=== PATIENT | male | born 1980 | race African-American/Black ===

== ENCOUNTER 2019-05-07 15:16 | Inpatient (IN) ==
[2019-05-07] MEDS ORDERED: NS 1000 ML 0 ML ONE (15:18)
[2019-05-07 15:40] LABS: BASOPHILS # (AUTO) 0.1 X10^3/uL (0.0-0.1); BASOPHILS % (AUTO) 0.8 % (0.2-1.0); EOSINOPHILS # (AUTO) 0.1 x10^3/uL (0.0-0.2); EOSINOPHILS % (AUTO) 1.5 % (0.9-2.9); HEMATOCRIT 39.2 % (42.0-54.0); HEMOGLOBIN 12.5 g/dL (13.5-18.0); LYMPHOCYTES # (AUTO) 1.6 X10^3/uL (1.3-2.9); LYMPHOCYTES % (AUTO) 19.4 % (21.0-51.0); MEAN CORPUSCULAR HEMOGLOBIN 23.8 pg (27.0-34.0); MEAN CORPUSCULAR HGB CONC 31.8 g/dL (33.0-35.0); MEAN CORPUSCULAR VOLUME 74.9 fL (80.0-100.0); MONOCYTES % (AUTO) 11.8 % (0.0-13.0); NEUTROPHILS # (AUTO) 5.6 x10^3/uL (2.2-4.8); NEUTROPHILS % (AUTO) 66.5 % (42.0-75.0); PLATELET COUNT 291 X10^3/uL (150.0-450.0); RED BLOOD COUNT 5.24 X10^6/uL (4.7-6.0); RED CELL DISTRIBUTION WIDTH 15.9 % (11.6-16.5); WHITE BLOOD COUNT 8.4 X10^3/uL (3.6-10.0)
--- NOTE | 2019-05-07 15:41 | DR.CP ---
HPI Time Seen Time Seen by Provider: 05/07/19 15:29 PCP Primary Care Physician: DR VALLEJO HPI Comment HPI Comment: PATIENT IS 38YR OLD MALE IN ED WITH CHEST PAIN LEFT CHEST 6/10 SQUEEZING PAIN RADIATING TO BACK ASSOCIATED WITH SOB. PATIENT HAVE HISTORY OF SOB. PAIN IS INTERMITTENT AND STARTED LAST NIGHT. PATIENTS SOB IS GETTING WORSE. NO PREVIOUS EPISODE REPORTED. Complaint Chief Complaint Doctor Comments: INTERMITTENT CHEST PAIN TIMES ONE DAY. Chief Complaint:: PT C/O LEFT SIDED CHEST SQUEEZING PAIN RATED 6/10 ASSOCIATED WITH SOB THAT STARTED LAST NIGHT AND HAS CONTINUED INTERMITTENTLY. Reviewed Nurses Notes Review: Yes Source History Provided: Patient Mode of Arrival Mode of Arrival: Ambulatory Timing Onset of Chief Complaint: 05/07/19 Came on: Suddenly Pain: Present Now Duration Duration: Intermittent Duration: Days Location Location of Chest Pain: Left and Chest Chest Pain Radiation Location: Back Context Onset: With light exertion Cardiac Risk Factors: Smoker, HTN and Diabetes PE Risk Factors: None History of: None Prehospital Care: None Quality Quality: Squeezing Severity Severity: Moderate Modifying Factors Worsens: Exertion Impoves: Rest Associated Signs and Symptoms Associated Signs and Symptoms: Shortness of Breath PMH PMH Past Medical History: Yes Past Medical History Comment: CHRONIC FOOT PAIN Past Surgical History: No Family History History of Family Medical Conditions: Yes Family Medical History: Hypertension Social History Does patient currently use any type of tobacco product: Yes Have you used tobacco products in the last 12 months: Yes Type of Tobacco Use: Cigarettes Does any household member use tobacco: No Alcohol Use: Occasionally Do you use any recreational Drugs:: Yes (MARIJUANA) Lives With: Family Lives Where: Home infectious screening In the last 2 months have you had wt loss of >10#?: NO Have you had fever, night sweats or hemotysis?: No Have you traveled outside the country in the last 6 months?: No Isolation: Standard ROS Review of Systems Constitutional: See HPI, Weakness and Fatigue; negative Fever Eyes: See HPI; negative Eye Pain, Blurred Vision and Discharge ENTM: No Symptoms Reported and See HPI; negative Ear Pain, Nose Discharge, Nose Congestion and Throat Pain Respiratoy: See HPI and Short of Breath; negative Productive Cough and Wheezing Cardiovascular: See HPI and Chest Pain; negative Edema, Palpitations and Syncope Gastrointestinal/Abdominal: See HPI and Nausea; negative Abdominal Pain, Constipation, Diarrhea and Vomiting Genitourinary: See HPI; negative No Symptoms Reported, Dysuria, Frequency and Hematuria Neurological: See HPI and Weakness; negative Headache and Dizziness Musculoskeletal: See HPI and Muscle Pain; negative Back Pain and Neck Integumentary: No Symptoms Reported and See HPI; negative Change in Color, Rash, Bruises and Juandice Hematologic/Lymphatic: No Symptoms Reported and See HPI; negative Easy Bleeding, Easy Bruising, Swollen Glands and Lymphadenopathy Endocrine: No Symptoms Reported and See HPI; negative Increased Thirst, Increased Urine and Decreased Appetite Psychiatric: No Symptoms Reported and See HPI All Other Systems: Reviewed and Negative PE Vitals Vitals: Temperature 97.4 F Pulse Rate 80 Respiratory Rate 20 Blood Pressure 118/68 O2 Sat by Pulse Oximetry 97 General Limitations: No Limitations General Appearance: Alert and In No Apparent Distress Head Head Exam: Normal Inspection, Atraumatic and Normocephalic Eyes Eye exam: Normal Appearance, PERRL and EOMI; negative Scleral Icterus and Conjunctival Injection ENT ENT Exam: Normal Exam, Normal Oropharynx, Normal External Ear Exam and TM's Normal Bilaterally Chest Chest Inspection: Normal Inspection and Symmetric Chest Wall Rise; negative T enderness Respiratory Respiratory Exam: Normal Lung Sounds Bilat; negative Accessory Muscle Use, Chest Wall Tenderness and Respiratory Distress Respiratory Exam: Bilateral: Clear to Auscultation Cardiovascular Cardiovascular Exam: Regular Rate, Normal Rhythm and Normal Heart Sounds; negative Systolic Murmur, Diastolic Murmur, Rubs and Gallop Pulse: Normal Edema: Normal Abdominal Exam Abdominal Exam: Normal Inspection, Normal Bowel Sounds and Soft; negative Tenderness Extremities Extremities Exam: Normal Inspection and Normal Capillary Refill; negative Tenderness, Edema and Calf Tenderness Back Back Exam: Normal Inspection; negative Tenderness, (R) CVA Tenderness, (L) CVA Tenderness, Paraspinal Tenderness and Vertebral Tenderness Neurologic Neurological Exam: Alert, Oriented X3 and CN II-XII Intact; negative Motor Sensory Deficit Psychiatric Psychiatric Exam: Normal Affect and Normal Mood Skin Skin Exam: Warm, Dry, Intact and Normal Color MDM Differential Diagnosis Differential Diagnosis: Angina, Chest Wall Pain, CHF, Costochondritis, Gastritis, Myocardial Infarction, Pericarditis, Pneumonia, Pneumothorax and Pulmonary Embolus COURSE Treatment Treatment: SEE ORDERS. Consultation Consultation Comments: SURGERY CONSULT TO DR. MERAZ. DR MORALES [employer] DR [facility] WILL ADMIT PATIENT. Education/Counseling Education/Counseling: Patient Educated On: Diagnosis and Needs for Follow Up ROR Labs Reviewed Laboratory Results Reviewed?: Yes Result Diagrams: 05/12/19 04:36 05/12/19 04:36 Laboratory: WBC 8.5 X10^3/uL (3.6-10.0) 05/12/19 04:36 RBC 5.16 X10^6/uL (4.7-6.0) 05/12/19 04:36 Hgb 12.2 g/dL (13.5-18.0) L 05/12/19 04:36 Hct 38.7 % (42.0-54.0) L 05/12/19 04:36 MCV 74.9 fL (80.0-100.0) L 05/12/19 04:36 MCH 23.7 pg (27.0-34.0) L 05/12/19 04:36 MCHC 31.6 g/dL (33.0-35.0) L 05/12/19 04:36 RDW 15.0 % (11.6-16.5) 05/12/19 04:36 Plt Count 363 X10^3/uL (150.0-450.0) 05/12/19 04:36 Plt Count Comment Adequate (ADEQUATE) 05/12/19 04:36 MPV 7.7 fL (7.4-11.0) 05/12/19 04:36 Neut % (Auto) 65.1 % (42.0-75.0) 05/12/19 04:36 Lymph % (Auto) 20.5 % (21.0-51.0) L 05/12/19 04:36 [place] % (Auto) 10.7 % (0.0-13.0) 05/12/19 04:36 Eos % (Auto) 2.7 % (0.9-2.9) 05/12/19 04:36 Baso % (Auto) 1.0 % (0.2-1.0) 05/12/19 04:36 Neut # (Auto) 5.5 x10^3/uL (2.2-4.8) H 05/12/19 04:36 Lymph # (Auto) 1.7 X10^3/uL (1.3-2.9) 05/12/19 04:36 [place] # (Auto) 0.9 x10^3/uL (0.3-0.8) H 05/12/19 04:36 Eos # (Auto) 0.2 x10^3/uL (0.0-0.2) 05/12/19 04:36 Baso # (Auto) 0.1 X10^3/uL (0.0-0.1) 05/12/19 04:36 Absolute Nucleated RBC 0.0 /100WBC 05/12/19 04:36 Plt Morphology Comment Normal (NORMAL) 05/12/19 04:36 RBC Morphology Abnormal (NORMAL) 05/12/19 04:36 Hypochromasia 1+ A 05/12/19 04:36 Target Cells Present 05/12/19 04:36 D-Dimer 169 ng/mL (0-400) 05/07/19 15:55 Sodium 142 mmol/L (136-145) 05/12/19 04:36 Corrected Sodium TNP 05/12/19 04:36 Potassium 3.8 mmol/L (3.5-5.1) 05/12/19 04:36 Chloride 106 mmol/L (98-107) 05/12/19 04:36 Carbon Dioxide 28.1 mmol/L (21-32) 05/12/19 04:36 BUN 16 mg/dL (7-18) 05/12/19 04:36 Creatinine 0.99 mg/dL (0.70-1.30) 05/12/19 04:36 Est GFR (MDRD) Af Amer > 60 (>60) 05/12/19 04:36 Est GFR (MDRD) Non-Af > 60 (>60) 05/12/19 04:36 Glucose 83 mg/dL (65-99) 05/12/19 04:36 Calcium 8.8 mg/dL (8.5-10.1) 05/12/19 04:36 Corrected Calcium 9.6 mg/dL (8.5-10.1) 05/12/19 04:36 Magnesium 1.8 mg/dL (1.7-2.9) 05/08/19 04:12 Total Bilirubin 0.30 mg/dL (0.2-1.0) 05/12/19 04:36 AST 15 Units/L (15-37) 05/12/19 04:36 ALT 13 Units/L (12-78) 05/12/19 04:36 Alkaline Phosphatase 64 Units/L (46-116) 05/12/19 04:36 Creatine Kinase 289 Units/L (39-308) 05/07/19 15:55 CK-MB (CK-2) 1.4 ng/mL (0-4.0) 05/07/19 15:55 CK/CKMB % Calc 0.5 % (<4) 05/07/19 15:55 Troponin I < 0.02 ng/mL (0-1.5) 05/07/19 15:55 Total Protein 6.4 g/dL (6.4-8.2) 05/12/19 04:36 Albumin 3.0 g/dL (3.4-5.0) L 05/12/19 04:36 Globulin 3.4 g/dL (2.5-4.5) 05/12/19 04:36 Albumin/Globulin Ratio 0.9 Ratio (1.1-2.1) L 05/12/19 04:36 Specimen Type Clean catch urine 05/07/19 18:03 Urine Color Yellow (YELLOW) 05/07/19 18:03 Urine Appearance Clear (CLEAR) 05/07/19 18:03 Urine pH 6.0 (5.0 - 8.0) 05/07/19 18:03 Ur Specific [place] 1.025 (1.000-1.030) 05/07/19 18:03 Urine Protein 1+ (NEGATIVE) 05/07/19 18:03 Urine Glucose (UA) Negative (NEGATIVE) 05/07/19 18:03 Urine Ketones Negative (NEGATIVE) 05/07/19 18:03 Urine Occult Blood 3+ (NEGATIVE) 05/07/19 18:03 Urine Nitrite Negative (NEGATIVE) 05/07/19 18:03 Urine Bilirubin Negative (NEGATIVE) 05/07/19 18:03 Urine Urobilinogen Normal (NORMAL) 05/07/19 18:03 Ur Leukocyte Esterase Negative (NEGATIVE) 05/07/19 18:03 Urine RBC 5-10 /HPF (NONE SEEN) 05/07/19 18:03 Urine WBC 0-2 /HPF (NONE SEEN) 05/07/19 18:03 Ur Squamous Epith Cells Rare /HPF (NEGATIVE) 05/07/19 18:03 Urine Bacteria Negative /HPF (NEGATIVE) 05/07/19 18:03 Urine Mucus Numerous /HPF (NEGATIVE) 05/07/19 18:03 Ur Culture Indicated? No/not indicated 05/07/19 18:03 Urine Opiates Screen Negative (NEG=<300) 05/07/19 18:03 Urine Methadone Screen Negative (NEG=<300) 05/07/19 18:03 Ur Barbiturates Screen Negative (NEG=<200) 05/07/19 18:03 Ur Phencyclidine Scrn Negative (NEG=<25) 05/07/19 18:03 Ur Amphetamines Screen Negative (NEG=<1000) 05/07/19 18:03 U Benzodiazepines Scrn Negative (NEG=<200) 05/07/19 18:03 Urine Cocaine Screen Positive (NEG=<300) 05/07/19 18:03 U Marijuana (THC) Screen Positive (NEG=<50) A 05/07/19 18:03 XRAY XRAY Interpreted by: Radiologist XRAY Findings: REPORT NOTED AND DISCUSS WITH PATIENT. Opioid Opioid Risk Tool Age (Rolo box if 16-45): Yes Total: 1 Total Score Risk Category: Low Risk Copyright: Deandre BAUER predicting aberrant behaviors Diagnosis Discharge Problem: Tension pneumothorax, spontaneous Chest pain Qualifiers: Chest pain type: intercostal pain Qualified Code(s): R07.82 - Intercostal pain Instructions Instructions: Steps to Quit Smoking, [id number] Coping with Quitting Smoking Health Risks of Smoking Cannabis Use Disorder Substance Use Disorder Pneumothorax Chest Tube Insertion, Adult, Care After Forms: Excuse From Work or School Patient Portal
[2019-05-07] MEDS ORDERED: TORADOL 30 MG VIAL IVP ONE (15:54)
[2019-05-07] MEDS ORDERED: PEPCID 20 MG IV PREMIX* 20 MG/50 ML BAG IV ONE (15:54)
[2019-05-07 15:55] LABS: HYPOCHROMASIA 1+; PLATELET MORPHOLOGY COMMENT NORMAL (NORMAL)
[2019-05-07] MEDS ORDERED: TORADOL 30 MG VIAL ONE (16:13)
[2019-05-07] MEDS ORDERED: PEPCID 20 MG IV PREMIX* 20 MG/50 ML BAG ONE (16:13)
[2019-05-07 16:37] LABS: ALANINE AMINOTRANSFERASE 16 Units/L (12-78); ALBUMIN 3.6 g/dL (3.4-5.0); ALKALINE PHOSPHATASE 71 Units/L (46-116); ASPARTATE AMINO TRANSFERASE 17 Units/L (15-37); BLOOD UREA NITROGEN 17 mg/dL (7-18); CALCIUM 8.8 mg/dL (8.5-10.1); CARBON DIOXIDE 25.4 mmol/L (21-32); CHLORIDE 109 mmol/L (98-107); CKMB % 0.5 % (<4); COR NA(FOR HYPERGLY) 146 mmol/L (136-145); CREATINE KINASE 289 Units/L (39-308); CREATINE KINASE MB 1.4 ng/mL (0-4.0); CREATININE 1.19 mg/dL (0.70-1.30); SODIUM 146 mmol/L (136-145); TOTAL PROTEIN 6.9 g/dL (6.4-8.2); TROPONIN I < 0.02 ng/mL (0-1.5); eGFR NON BLACK RACES > 60 (>60)
[2019-05-07] MEDS ORDERED: XYLOCAINE 2 % (PLAIN) ONE (17:47)
[2019-05-07] MEDS ORDERED: STERILE WATER IRRIGATION ONE (17:49)
[2019-05-07 18:10] LABS: BILIRUBIN,URINE NEGATIVE (NEGATIVE); BLOOD/HEMOGLOBIN,URINE 3+ (NEGATIVE); GLUCOSE, URINE NEGATIVE (NEGATIVE); KETONES,URINE NEGATIVE (NEGATIVE); LEUKOCYTE ESTERASE ,URINE NEGATIVE (NEGATIVE); NITRITES,URINE NEGATIVE (NEGATIVE); PROTEIN,URINE 1+ (NEGATIVE); UROBILINOGEN,URINE NORMAL (NORMAL)
[2019-05-07 18:21] LABS: APPEARANCE,URINE CLEAR (CLEAR); COLOR,URINE YELLOW (YELLOW)
[2019-05-07 18:22] LABS: BACTERIA,URINE NEGATIVE /HPF (NEGATIVE); MUCUS,URINE NUMEROUS /HPF (NEGATIVE); SQUAMOUS EPITHELIAL CELL,UR RARE /HPF (NEGATIVE)
[2019-05-07] MEDS ORDERED: DILAUDID INJ ONE (18:40)
[2019-05-07] MEDS ORDERED: DILAUDID INJ IVP ONE (18:41)
[2019-05-07] MEDS ORDERED: ZOFRAN INJ 4 MG VIAL IVP SCH (21:00)
[2019-05-07] MEDS: NS 1000 ML 1,000 ML IV SCH (21:22)
[2019-05-07 21:57] VITALS: BMI 19.5
--- NOTE | 2019-05-08 01:39 | RAD ---
Chest, one view Indication: Chest tube placement Comparison: Radiograph from earlier today Findings: Left thoracostomy tube is well positioned, terminating along the left lateral lung apex. The left sided pneumothorax is significantly improved. There is now a trace persistent left apical pneumothorax. Apart from mild left basilar atelectasis, the remainder of the lungs are clear. Heart is normal in size. Impression: Satisfactory left thoracostomy tube placement with significantly improved left pneumothorax. Reported By:
[2019-05-08] MEDS: MORPHINE SULFATE INJ 4 MG IVP PRN ×3 (03:11→20:35)
--- NOTE | 2019-05-08 05:21 | OR.GENERIC ---
Post-Op Note Generic - Post-Op Note Operative Report: chest tube was placed Lt pleural space with good position and expansion of the lung ..still small pneumothorax in the appex . will repeat the xray in the morning and keep chest tube to LCS ,
[2019-05-08 05:45] LABS: ALANINE AMINOTRANSFERASE 14 Units/L (12-78); ALBUMIN 2.9 g/dL (3.4-5.0); ALKALINE PHOSPHATASE 63 Units/L (46-116); ASPARTATE AMINO TRANSFERASE 15 Units/L (15-37); BLOOD UREA NITROGEN 15 mg/dL (7-18); CALCIUM 8.4 mg/dL (8.5-10.1); CARBON DIOXIDE 25.8 mmol/L (21-32); CHLORIDE 108 mmol/L (98-107); COR CA(FOR HYPOALB) 9.3 mg/dL (8.5-10.1); CREATININE 1.01 mg/dL (0.70-1.30); MAGNESIUM 1.8 mg/dL (1.7-2.9); SODIUM 143 mmol/L (136-145); TOTAL PROTEIN 6.1 g/dL (6.4-8.2); eGFR NON BLACK RACES > 60 (>60)
[2019-05-08 05:53] LABS: BASOPHILS # (AUTO) 0.1 X10^3/uL (0.0-0.1); BASOPHILS % (AUTO) 0.6 % (0.2-1.0); EOSINOPHILS # (AUTO) 0.1 x10^3/uL (0.0-0.2); EOSINOPHILS % (AUTO) 1.5 % (0.9-2.9); HEMOGLOBIN 11.5 g/dL (13.5-18.0); LYMPHOCYTES # (AUTO) 1.8 X10^3/uL (1.3-2.9); LYMPHOCYTES % (AUTO) 18.9 % (21.0-51.0); MEAN CORPUSCULAR HEMOGLOBIN 23.8 pg (27.0-34.0); MEAN CORPUSCULAR HGB CONC 32.1 g/dL (33.0-35.0); MEAN CORPUSCULAR VOLUME 74.4 fL (80.0-100.0); MEAN PLATELET VOLUME 7.5 fL (7.4-11.0); MONOCYTES % (AUTO) 10.7 % (0.0-13.0); NEUTROPHILS # (AUTO) 6.6 x10^3/uL (2.2-4.8); NEUTROPHILS % (AUTO) 68.3 % (42.0-75.0); PLATELET COUNT 298 X10^3/uL (150.0-450.0); RED BLOOD COUNT 4.84 X10^6/uL (4.7-6.0); RED CELL DISTRIBUTION WIDTH 15.6 % (11.6-16.5); WHITE BLOOD COUNT 9.7 X10^3/uL (3.6-10.0)
[2019-05-08 06:38] LABS: HYPOCHROMASIA SLIGHT; PLATELET MORPHOLOGY COMMENT NORMAL (NORMAL)
--- NOTE | 2019-05-08 06:55 | RAD ---
HISTORY: Follow-up pneumothorax Study: Chest AP portable Comparison: 05/07/2019 Findings: The heart is upper limits normal in size. No congestive heart failure is noted. The lungs are mildly hypo inflated. The right lung is clear. There is a left chest tube in place. No definite residual left pneumothorax is identified. Bullous changes present in the left lung apex. The bony thorax is unremarkable. IMPRESSION: No significant residual or recurrent left pneumothorax Bullous change left lung apex No acute infiltrates Reported By:
[2019-05-08] MEDS: NS 1000 ML 1,000 ML IV SCH (09:56)
[2019-05-08] MEDS ORDERED: TORADOL 30 MG VIAL IVP SCH (10:00)
[2019-05-08] MEDS: LEVAQUIN PREMIX IV 500 MG 500 MG/100 ML BAG IV SCH (11:18)
--- NOTE | 2019-05-08 13:43 | DR.PROGNOT ---
Hospital Progress Notes - Progress Note for Day of: Progress Note Date: 05/08/19 - Chief Complaint Chief Complaint: c/o Lt chest pain with mild SOB . chest xray shwed good placement of the chest tube , no further pneumothorax . VS are stable . - Past Medical Family Social History Past Med/Fam/Surg Hx: No changes since H&P Allergies: Allergies No Known Drug Allergies Allergy (Verified 05/07/19 20:18) - Review Of Systems ROS: No change since H&P - Vital Signs Vital Signs: Temperature 99.0 F Pulse Rate 67 Respiratory Rate 16 Blood Pressure 126/85 O2 Sat by Pulse Oximetry 95 - Physical Exam Oriented: Normal Eyes: Normal Ear: Normal Nose: Normal Respiratory: Normal Cardiovascular: Normal : Normal GI:Auscultation: Normal GI:Palpation: Normal GI: Tenderness: Normal Musculoskeletal: Normal Psychiatric: Normal Speech Pattern: Clear - Laboratory and Diagnostics Result Diagrams: 05/08/19 04:12 05/08/19 04:12 Labs: Laboratory WBC 9.7 X10^3/uL (3.6-10.0) 05/08/19 04:12 RBC 4.84 X10^6/uL (4.7-6.0) 05/08/19 04:12 Hgb 11.5 g/dL (13.5-18.0) L 05/08/19 04:12 Hct 36.0 % (42.0-54.0) L 05/08/19 04:12 MCV 74.4 fL (80.0-100.0) L 05/08/19 04:12 MCH 23.8 pg (27.0-34.0) L 05/08/19 04:12 MCHC 32.1 g/dL (33.0-35.0) L 05/08/19 04:12 RDW 15.6 % (11.6-16.5) 05/08/19 04:12 Plt Count 298 X10^3/uL (150.0-450.0) 05/08/19 04:12 Plt Count Comment Adequate (ADEQUATE) 05/08/19 04:12 MPV 7.5 fL (7.4-11.0) 05/08/19 04:12 Neut % (Auto) 68.3 % (42.0-75.0) 05/08/19 04:12 Lymph % (Auto) 18.9 % (21.0-51.0) L 05/08/19 04:12 [place] % (Auto) 10.7 % (0.0-13.0) 05/08/19 04:12 Eos % (Auto) 1.5 % (0.9-2.9) 05/08/19 04:12 Baso % (Auto) 0.6 % (0.2-1.0) 05/08/19 04:12 Neut # (Auto) 6.6 x10^3/uL (2.2-4.8) H 05/08/19 04:12 Lymph # (Auto) 1.8 X10^3/uL (1.3-2.9) 05/08/19 04:12 [place] # (Auto) 1.0 x10^3/uL (0.3-0.8) H 05/08/19 04:12 Eos # (Auto) 0.1 x10^3/uL (0.0-0.2) 05/08/19 04:12 Baso # (Auto) 0.1 X10^3/uL (0.0-0.1) 05/08/19 04:12 Absolute Nucleated RBC 0.0 /100WBC 05/08/19 04:12 Plt Morphology Comment Normal (NORMAL) 05/08/19 04:12 RBC Morphology Abnormal (NORMAL) 05/08/19 04:12 Hypochromasia Slight A 05/08/19 04:12 D-Dimer 169 ng/mL (0-400) 05/07/19 15:55 Sodium 143 mmol/L (136-145) 05/08/19 04:12 Corrected Sodium TNP 05/08/19 04:12 Potassium 3.9 mmol/L (3.5-5.1) 05/08/19 04:12 Chloride 108 mmol/L (98-107) H 05/08/19 04:12 Carbon Dioxide 25.8 mmol/L (21-32) 05/08/19 04:12 BUN 15 mg/dL (7-18) 05/08/19 04:12 Creatinine 1.01 mg/dL (0.70-1.30) 05/08/19 04:12 Est GFR (MDRD) Af Amer > 60 (>60) 05/08/19 04:12 Est GFR (MDRD) Non-Af > 60 (>60) 05/08/19 04:12 Glucose 90 mg/dL (65-99) 05/08/19 04:12 Calcium 8.4 mg/dL (8.5-10.1) L 05/08/19 04:12 Corrected Calcium 9.3 mg/dL (8.5-10.1) 05/08/19 04:12 Magnesium 1.8 mg/dL (1.7-2.9) 05/08/19 04:12 Total Bilirubin 0.30 mg/dL (0.2-1.0) 05/08/19 04:12 AST 15 Units/L (15-37) 05/08/19 04:12 ALT 14 Units/L (12-78) 05/08/19 04:12 Alkaline Phosphatase 63 Units/L (46-116) 05/08/19 04:12 Creatine Kinase 289 Units/L (39-308) 05/07/19 15:55 CK-MB (CK-2) 1.4 ng/mL (0-4.0) 05/07/19 15:55 CK/CKMB % Calc 0.5 % (<4) 05/07/19 15:55 Troponin I < 0.02 ng/mL (0-1.5) 05/07/19 15:55 Total Protein 6.1 g/dL (6.4-8.2) L 05/08/19 04:12 Albumin 2.9 g/dL (3.4-5.0) L 05/08/19 04:12 Globulin 3.2 g/dL (2.5-4.5) 05/08/19 04:12 Albumin/Globulin Ratio 0.9 Ratio (1.1-2.1) L 05/08/19 04:12 Specimen Type Clean catch urine 05/07/19 18:03 Urine Color Yellow (YELLOW) 05/07/19 18:03 Urine Appearance Clear (CLEAR) 05/07/19 18:03 Urine pH 6.0 (5.0 - 8.0) 05/07/19 18:03 Ur Specific [place] 1.025 (1.000-1.030) 05/07/19 18:03 Urine Protein 1+ (NEGATIVE) 05/07/19 18:03 Urine Glucose (UA) Negative (NEGATIVE) 05/07/19 18:03 Urine Ketones Negative (NEGATIVE) 05/07/19 18:03 Urine Occult Blood 3+ (NEGATIVE) 05/07/19 18:03 Urine Nitrite Negative (NEGATIVE) 05/07/19 18:03 Urine Bilirubin Negative (NEGATIVE) 05/07/19 18:03 Urine Urobilinogen Normal (NORMAL) 05/07/19 18:03 Ur Leukocyte Esterase Negative (NEGATIVE) 05/07/19 18:03 Urine RBC 5-10 /HPF (NONE SEEN) 05/07/19 18:03 Urine WBC 0-2 /HPF (NONE SEEN) 05/07/19 18:03 Ur Squamous Epith Cells Rare /HPF (NEGATIVE) 05/07/19 18:03 Urine Bacteria Negative /HPF (NEGATIVE) 05/07/19 18:03 Urine Mucus Numerous /HPF (NEGATIVE) 05/07/19 18:03 Ur Culture Indicated? No/not indicated 05/07/19 18:03 Urine Opiates Screen Negative (NEG=<300) 05/07/19 18:03 Urine Methadone Screen Negative (NEG=<300) 05/07/19 18:03 Ur Barbiturates Screen Negative (NEG=<200) 05/07/19 18:03 Ur Phencyclidine Scrn Negative (NEG=<25) 05/07/19 18:03 Ur Amphetamines Screen Negative (NEG=<1000) 05/07/19 18:03 U Benzodiazepines Scrn Negative (NEG=<200) 05/07/19 18:03 Urine Cocaine Screen Positive (NEG=<300) 05/07/19 18:03 U Marijuana (THC) Screen Positive (NEG=<50) A 05/07/19 18:03 - Assessment and Plan 1: spontaneous Lt pneumothorax , s/p placement of chest tube . areas of bollous changes Lt lung appex ( possible future recurrence of pneumo thorax ) . will keep chest tube for few days till no more air leak .
[2019-05-08] MEDS: TORADOL TAB PO PRN (17:06)
--- NOTE | 2019-05-08 19:17 | DR.H&P ---
H&P - History & Physical for Day of: H&P Date: 05/07/19 - Chief Complaint Chief Complaint: SHORT OF BREATH, CHEST PAIN - History of Present Illness History of Present Illness: IS A 38 YEAR OLD PATIENT OF . HE PRESENTED TO THE ER WITH COMPLAINTS OF LEFT SIDED CHEST PAIN AND SHORTNESS OF BREATH. HE REPORTS THAT SYMPTOMS STARTED LAST NIGHT AND HAS PROGRESSIVELY GOTTEN WORSE. ON EXAMINATION, HE IS NOTED WITH DIMINISHED LUNG SOUNDS TO THE LEFT SIDE LUNG. ON ARRIVAL, VITALS WERE 98.2-101-22-99%-129/83. LABS WERE OBTAINED. ABNORMAL LAB VALUES INCLUDE THE FOLLOWING: HGB 12.5, HCT 39.2, SODIUM 146, CHLORIDE 109, GLUCOSE 116. URINE DRUG SCREEN WAS POSITIVE FOR COCAINE AND MARIJUANA. A CHEST XRAY WAS OBTAINED AND REVEALED A LEFT SIDED PNEUMOTHORAX. WAS CONSULTED FOR PLACEMENT OF A CHEST TUBE. CHEST TUBE WAS PLACED IN THE ER. REPEAT CHEST XRAY REVEALED: Satisfactory left thoracostomy tube placement with significantly improved left pneumothorax. HE WAS ADMITTED FOR FURTHER EVALUATION AND TREATMENT OF TENSION PNEUMONTHORAX AND CHEST PAIN. HE WAS STARTED ON NORMAL SALINE AT 75ML/HR AND MORPHINE 4MG IV Q4H PRN PAIN. WE WILL FOLLOW UP WITH AM LABS AND CONTINUE TO MONITOR. - Past Surgical History Surgical History: No History - Family History Family Medical History: Hypertension - Social History Does patient currently use any type of tobacco product: Yes Have you used tobacco products in the last 12 months: Yes Type of Tobacco Use: Cigarettes Does any household member use tobacco: Yes Alcohol Use: Occasionally Drug Use: Cocaine - Medications Home Medications: No Known Drug Allergies Allergy (Verified 05/07/19 20:18) - Review of Systems Constitutional: No Symptoms Reported Eyes: No Symptoms Reported ENT: No Symptoms Reported Respiratory: Shortness of Breath, SOB with Excertion Cardiovascular: Chest Pain Gastrointestinal: No Symptoms Reported Genitourinary: No Symptoms Reported Musculoskeletal: No Symptoms Reported Skin: No Symptoms Reported Neurological: No Symptoms Reported - Physical Exam Vital Signs: Temperature 98.9 F Pulse Rate 69 Respiratory Rate 22 Blood Pressure 127/83 O2 Sat by Pulse Oximetry 96 Oriented: Normal Eyes: Normal Ear: Normal Nose: Normal Throat: Normal Respiratory: Diminished Throughout Cardiovascular: Tachycardia. negative: S3, S4, Murmur : Normal Auscultation: Bowel Sounds: Normal Palpation: Normal Tenderness: Normal Skin: Normal Musculoskeletal: Normal Psychiatric: Normal Mood Description: Calm Affect: Normal Speech Pattern: Clear - Assessment/Plan (1) Tension pneumothorax Status: Acute Plan: CHEST TUBE, SUPPLEMENTAL OXYGEN, PAIN CONTROL, CONTINUE TO MONITOR (2) Chest pain, rule out acute myocardial infarction Status: Acute Plan: SERIAL CARDIAC ENZYMES AND EKGS - Allergies Allergies/Adverse Reactions: Allergies Allergy/AdvReac Type Severity Reaction Status Date / Time No Known Drug Allergies Allergy Verified 05/07/19 20:18
[2019-05-08] MEDS: ZOFRAN INJ 4 MG VIAL IVP PRN (20:36)
[2019-05-09] MEDS: NS 1000 ML 1,000 ML IV SCH (01:20)
[2019-05-09] MEDS: ZOFRAN INJ 4 MG VIAL IVP PRN (04:31)
[2019-05-09] MEDS: MORPHINE SULFATE INJ 4 MG IVP PRN (04:31)
[2019-05-09 05:44] LABS: BASOPHILS # (AUTO) 0.1 X10^3/uL (0.0-0.1); BASOPHILS % (AUTO) 0.8 % (0.2-1.0); EOSINOPHILS # (AUTO) 0.2 x10^3/uL (0.0-0.2); EOSINOPHILS % (AUTO) 2.3 % (0.9-2.9); HEMATOCRIT 37.2 % (42.0-54.0); HEMOGLOBIN 11.8 g/dL (13.5-18.0); LYMPHOCYTES # (AUTO) 1.5 X10^3/uL (1.3-2.9); LYMPHOCYTES % (AUTO) 20.3 % (21.0-51.0); MEAN CORPUSCULAR HEMOGLOBIN 23.8 pg (27.0-34.0); MEAN CORPUSCULAR HGB CONC 31.7 g/dL (33.0-35.0); MEAN CORPUSCULAR VOLUME 75.2 fL (80.0-100.0); MEAN PLATELET VOLUME 7.7 fL (7.4-11.0); MONOCYTES % (AUTO) 12.9 % (0.0-13.0); NEUTROPHILS # (AUTO) 4.8 x10^3/uL (2.2-4.8); NEUTROPHILS % (AUTO) 63.7 % (42.0-75.0); PLATELET COUNT 286 X10^3/uL (150.0-450.0); RED BLOOD COUNT 4.95 X10^6/uL (4.7-6.0); RED CELL DISTRIBUTION WIDTH 15.5 % (11.6-16.5); WHITE BLOOD COUNT 7.5 X10^3/uL (3.6-10.0)
[2019-05-09 05:48] LABS: ALANINE AMINOTRANSFERASE 14 Units/L (12-78); ALBUMIN 2.9 g/dL (3.4-5.0); ALKALINE PHOSPHATASE 58 Units/L (46-116); ASPARTATE AMINO TRANSFERASE 16 Units/L (15-37); BLOOD UREA NITROGEN 10 mg/dL (7-18); CALCIUM 8.4 mg/dL (8.5-10.1); CARBON DIOXIDE 26.5 mmol/L (21-32); CHLORIDE 106 mmol/L (98-107); COR CA(FOR HYPOALB) 9.3 mg/dL (8.5-10.1); CREATININE 0.93 mg/dL (0.70-1.30); SODIUM 141 mmol/L (136-145); TOTAL PROTEIN 6.1 g/dL (6.4-8.2); eGFR NON BLACK RACES > 60 (>60)
--- NOTE | 2019-05-09 06:16 | RAD ---
Chest, one view Indication: Shortness of breath Comparison: 05/08/2019 Findings: The left thoracostomy tube remains satisfactory in position. No significant residual or recurrent left pneumothorax is identified. Bullous changes within the left lung apex again noted. Apart from mild bibasilar atelectasis, the remainder of the lungs are clear. Heart is stable in size. No significant effusion. Impression: Stable left thoracostomy tube without significant residual or recurrent left pneumothorax. Stable left apical bullous changes. Mild bibasilar atelectasis without acute infiltrates. Reported By:
[2019-05-09 06:48] LABS: HYPOCHROMASIA 1+; PLATELET MORPHOLOGY COMMENT NORMAL (NORMAL)
[2019-05-09] MEDS: LEVAQUIN PREMIX IV 500 MG 500 MG/100 ML BAG IV SCH (08:18)
--- NOTE | 2019-05-09 08:57 | PCM.PROG ---
Progress Note - Progress Note for Day of Date of Exam: 05/08/19 - Subjective Subjective: WAS ADMITTED FOR A TENSION PNEUMOTHORAX AND CHEST PAIN. TODAY, HE IS ALERT AND ORIENTED, LYING IN BED ON MORNING ROUNDS. HE REPORTS LEFT SIDED PAIN, BUT REPORTS THAT SHORTNESS OF BREATH HAS IMPROVED. PAIN IS LIKELY RELATED TO THE CHEST TUBE. ON EXAMINATION, HEART IS REGULAR IN RATE AND RHYTHM. BILATERAL LUNGS ARE NOTED WITH DIMINISHED LUNG SOUNDS THROUGHOUT. ABDOMEN IS ROUND, SOFT, AND NON-TENDER WITH NORMAL BOWEL SOUNDS NOTED IN ALL QUADRANTS. HIS VITALS THIS MORNING ARE: 99.5-59-39-92%-134/87. LABS WERE OBTAINED. ABNORMAL LAB VALUES INCLUDE THE FOLLOWING: HGB 11.5, HCT 36.0, CHLORIDE 108, CALCIUM 8.4, TOTAL PROTEIN 6.1, ALBUMIN 2.9. A CHEST XRAY WAS OBTAINED TODAY AND REVEALED: No significant residual or recurrent left pneumothorax. Bullous change left lung apex. No acute infiltrates. HE IS CURRENTLY RECEIVING NORMAL SALINE AT 75ML/HR AND MORPHINE 4MG IV Q4H PRN PAIN. TODAY, WE WILL START TORADOL 30MG IV Q6H. OTHERWISE, WE WILL FOLLOW UP WITH AM LABS AND CONTINUE TO MONITOR. - Past Medical Family Social History Past Med/Fam/Surg Hx: No changes since H&P Allergies: Allergies No Known Drug Allergies Allergy (Verified 05/07/19 20:18) - Review of Systems ROS: No change since H&P - Vital Signs and I&O's Vital Signs: Temperature 98.6 F Pulse Rate 64 Respiratory Rate 30 Blood Pressure 136/85 O2 Sat by Pulse Oximetry 99 Intake and Output: Intake & Output 05/06/19 05/07/19 05/08/19 05/09/19 11:59 11:59 11:59 11:59 Intake Total 1865 / 1865 4345 / 4345 Output Total 245 / 245 1645 / 1645 Balance 1620 / 1620 2700 / 2700 - Physical Exam Oriented: Normal Eyes: Normal Ear: Normal Nose: Normal Throat: Normal Respiratory: Normal Cardiovascular: Tachycardia. negative: S3, S4, Murmur : Normal Auscultation: Bowel Sounds: Normal Palpation: Normal Tenderness: Normal Skin: Normal Musculoskeletal: Normal Psychiatric: Normal Mood Description: Calm Affect: Normal Speech Pattern: Clear - Laboratory and Diagnostics Result Diagrams: 05/09/19 04:12 05/09/19 04:12 Labs: Laboratory WBC 7.5 X10^3/uL (3.6-10.0) 05/09/19 04:12 RBC 4.95 X10^6/uL (4.7-6.0) 05/09/19 04:12 Hgb 11.8 g/dL (13.5-18.0) L 05/09/19 04:12 Hct 37.2 % (42.0-54.0) L 05/09/19 04:12 MCV 75.2 fL (80.0-100.0) L 05/09/19 04:12 MCH 23.8 pg (27.0-34.0) L 05/09/19 04:12 MCHC 31.7 g/dL (33.0-35.0) L 05/09/19 04:12 RDW 15.5 % (11.6-16.5) 05/09/19 04:12 Plt Count 286 X10^3/uL (150.0-450.0) 05/09/19 04:12 Plt Count Comment Adequate (ADEQUATE) 05/09/19 04:12 MPV 7.7 fL (7.4-11.0) 05/09/19 04:12 Neut % (Auto) 63.7 % (42.0-75.0) 05/09/19 04:12 Lymph % (Auto) 20.3 % (21.0-51.0) L 05/09/19 04:12 [place] % (Auto) 12.9 % (0.0-13.0) 05/09/19 04:12 Eos % (Auto) 2.3 % (0.9-2.9) 05/09/19 04:12 Baso % (Auto) 0.8 % (0.2-1.0) 05/09/19 04:12 Neut # (Auto) 4.8 x10^3/uL (2.2-4.8) 05/09/19 04:12 Lymph # (Auto) 1.5 X10^3/uL (1.3-2.9) 05/09/19 04:12 [place] # (Auto) 1.0 x10^3/uL (0.3-0.8) H 05/09/19 04:12 Eos # (Auto) 0.2 x10^3/uL (0.0-0.2) 05/09/19 04:12 Baso # (Auto) 0.1 X10^3/uL (0.0-0.1) 05/09/19 04:12 Absolute Nucleated RBC 0.0 /100WBC 05/09/19 04:12 Plt Morphology Comment Normal (NORMAL) 05/09/19 04:12 RBC Morphology Abnormal (NORMAL) 05/09/19 04:12 Hypochromasia 1+ A 05/09/19 04:12 D-Dimer 169 ng/mL (0-400) 05/07/19 15:55 Sodium 141 mmol/L (136-145) 05/09/19 04:12 Corrected Sodium TNP 05/09/19 04:12 Potassium 3.8 mmol/L (3.5-5.1) 05/09/19 04:12 Chloride 106 mmol/L (98-107) 05/09/19 04:12 Carbon Dioxide 26.5 mmol/L (21-32) 05/09/19 04:12 BUN 10 mg/dL (7-18) 05/09/19 04:12 Creatinine 0.93 mg/dL (0.70-1.30) 05/09/19 04:12 Est GFR (MDRD) Af Amer > 60 (>60) 05/09/19 04:12 Est GFR (MDRD) Non-Af > 60 (>60) 05/09/19 04:12 Glucose 89 mg/dL (65-99) 05/09/19 04:12 Calcium 8.4 mg/dL (8.5-10.1) L 05/09/19 04:12 Corrected Calcium 9.3 mg/dL (8.5-10.1) 05/09/19 04:12 Magnesium 1.8 mg/dL (1.7-2.9) 05/08/19 04:12 Total Bilirubin 0.30 mg/dL (0.2-1.0) 05/09/19 04:12 AST 16 Units/L (15-37) 05/09/19 04:12 ALT 14 Units/L (12-78) 05/09/19 04:12 Alkaline Phosphatase 58 Units/L (46-116) 05/09/19 04:12 Creatine Kinase 289 Units/L (39-308) 05/07/19 15:55 CK-MB (CK-2) 1.4 ng/mL (0-4.0) 05/07/19 15:55 CK/CKMB % Calc 0.5 % (<4) 05/07/19 15:55 Troponin I < 0.02 ng/mL (0-1.5) 05/07/19 15:55 Total Protein 6.1 g/dL (6.4-8.2) L 05/09/19 04:12 Albumin 2.9 g/dL (3.4-5.0) L 05/09/19 04:12 Globulin 3.2 g/dL (2.5-4.5) 05/09/19 04:12 Albumin/Globulin Ratio 0.9 Ratio (1.1-2.1) L 05/09/19 04:12 Specimen Type Clean catch urine 05/07/19 18:03 Urine Color Yellow (YELLOW) 05/07/19 18:03 Urine Appearance Clear (CLEAR) 05/07/19 18:03 Urine pH 6.0 (5.0 - 8.0) 05/07/19 18:03 Ur Specific [place] 1.025 (1.000-1.030) 05/07/19 18:03 Urine Protein 1+ (NEGATIVE) 05/07/19 18:03 Urine Glucose (UA) Negative (NEGATIVE) 05/07/19 18:03 Urine Ketones Negative (NEGATIVE) 05/07/19 18:03 Urine Occult Blood 3+ (NEGATIVE) 05/07/19 18:03 Urine Nitrite Negative (NEGATIVE) 05/07/19 18:03 Urine Bilirubin Negative (NEGATIVE) 05/07/19 18:03 Urine Urobilinogen Normal (NORMAL) 05/07/19 18:03 Ur Leukocyte Esterase Negative (NEGATIVE) 05/07/19 18:03 Urine RBC 5-10 /HPF (NONE SEEN) 05/07/19 18:03 Urine WBC 0-2 /HPF (NONE SEEN) 05/07/19 18:03 Ur Squamous Epith Cells Rare /HPF (NEGATIVE) 05/07/19 18:03 Urine Bacteria Negative /HPF (NEGATIVE) 05/07/19 18:03 Urine Mucus Numerous /HPF (NEGATIVE) 05/07/19 18:03 Ur Culture Indicated? No/not indicated 05/07/19 18:03 Urine Opiates Screen Negative (NEG=<300) 05/07/19 18:03 Urine Methadone Screen Negative (NEG=<300) 05/07/19 18:03 Ur Barbiturates Screen Negative (NEG=<200) 05/07/19 18:03 Ur Phencyclidine Scrn Negative (NEG=<25) 05/07/19 18:03 Ur Amphetamines Screen Negative (NEG=<1000) 05/07/19 18:03 U Benzodiazepines Scrn Negative (NEG=<200) 05/07/19 18:03 Urine Cocaine Screen Positive (NEG=<300) 05/07/19 18:03 U Marijuana (THC) Screen Positive (NEG=<50) A 05/07/19 18:03 - Plan (1) Tension pneumothorax Status: Acute Plan: CHEST TUBE, SUPPLEMENTAL OXYGEN, PAIN CONTROL, CONTINUE TO MONITOR (2) Chest pain, rule out acute myocardial infarction Status: Acute Plan: CONTINUE TO MONITOR
[2019-05-09] MEDS: TORADOL TAB PO PRN (11:00)
--- NOTE | 2019-05-09 14:53 | PCM.PROG ---
Progress Note - Progress Note for Day of Date of Exam: 05/09/19 - Subjective Subjective: WAS ADMITTED FOR A TENSION PNEUMOTHORAX AND CHEST PAIN. TODAY, HE IS ALERT AND ORIENTED, LYING IN BED ON MORNING ROUNDS. HE REPORTS LEFT SIDED RYAN. HE STATES THAT SHORTNESS OF BREATH HAS IMPROVED. PAIN IS LIKELY RELATED TO THE CHEST TUBE. ON EXAMINATION, HEART IS REGULAR IN RATE AND RHYTHM. BILATERAL LUNGS ARE NOTED WITH DIMINISHED LUNG SOUNDS THROUGHOUT. ABDOMEN IS ROUND, SOFT, AND NON-TENDER WITH NORMAL BOWEL SOUNDS NOTED IN ALL QUADRANTS. HIS VITALS THIS MORNING ARE: 98.7-63-17-100%-124/83. LABS WERE OBTAINED. ABNORMAL LAB VALUES INCLUDE THE FOLLOWING: HGB 11.8, HCT 37.2, CALCIUM 8.4, TOTAL PROTEIN 6.1, ALBUMIN 2.9. A CHEST XRAY WAS OBTAINED TODAY AND REVEALED: Stable left thoracostomy tube without significant residual or recurrent left pneumothorax. Stable left apical bullous changes. Mild bibasilar atelectasis without acute infiltrates. HE IS CURRENTLY RECEIVING NORMAL SALINE AT 75ML/HR AND LEVAQUIN 500MG IV DAILY. TODAY, WE WILL DISCONTINUE THE MORPHINE AND CONTINUE WITH THE TORADOL. OTHERWISE, WE WILL FOLLOW UP WITH AM LABS AND CONTINUE TO MONITOR. - Past Medical Family Social History Past Med/Fam/Surg Hx: No changes since H&P Allergies: Allergies No Known Drug Allergies Allergy (Verified 05/07/19 20:18) - Review of Systems ROS: No change since H&P - Vital Signs and I&O's Vital Signs: Temperature 98.7 F Pulse Rate 64 Respiratory Rate 15 Blood Pressure 118/81 O2 Sat by Pulse Oximetry 100 Intake and Output: Intake & Output 05/07/19 05/08/19 05/09/19 05/10/19 11:59 11:59 11:59 11:59 Intake Total 1865 / 1865 4345 / 4345 Output Total 245 / 245 1645 / 1645 Balance 1620 / 1620 2700 / 2700 - Physical Exam Oriented: Normal Eyes: Normal Ear: Normal Nose: Normal Throat: Normal Respiratory: Normal Cardiovascular: Normal. negative: S3, S4, Murmur : Normal Auscultation: Bowel Sounds: Normal Palpation: Normal Tenderness: Normal Skin: Normal Musculoskeletal: Normal Psychiatric: Normal Mood Description: Calm Affect: Normal Speech Pattern: Clear - Laboratory and Diagnostics Result Diagrams: 05/09/19 04:12 05/09/19 04:12 Labs: Laboratory WBC 7.5 X10^3/uL (3.6-10.0) 05/09/19 04:12 RBC 4.95 X10^6/uL (4.7-6.0) 05/09/19 04:12 Hgb 11.8 g/dL (13.5-18.0) L 05/09/19 04:12 Hct 37.2 % (42.0-54.0) L 05/09/19 04:12 MCV 75.2 fL (80.0-100.0) L 05/09/19 04:12 MCH 23.8 pg (27.0-34.0) L 05/09/19 04:12 MCHC 31.7 g/dL (33.0-35.0) L 05/09/19 04:12 RDW 15.5 % (11.6-16.5) 05/09/19 04:12 Plt Count 286 X10^3/uL (150.0-450.0) 05/09/19 04:12 Plt Count Comment Adequate (ADEQUATE) 05/09/19 04:12 MPV 7.7 fL (7.4-11.0) 05/09/19 04:12 Neut % (Auto) 63.7 % (42.0-75.0) 05/09/19 04:12 Lymph % (Auto) 20.3 % (21.0-51.0) L 05/09/19 04:12 [place] % (Auto) 12.9 % (0.0-13.0) 05/09/19 04:12 Eos % (Auto) 2.3 % (0.9-2.9) 05/09/19 04:12 Baso % (Auto) 0.8 % (0.2-1.0) 05/09/19 04:12 Neut # (Auto) 4.8 x10^3/uL (2.2-4.8) 05/09/19 04:12 Lymph # (Auto) 1.5 X10^3/uL (1.3-2.9) 05/09/19 04:12 [place] # (Auto) 1.0 x10^3/uL (0.3-0.8) H 05/09/19 04:12 Eos # (Auto) 0.2 x10^3/uL (0.0-0.2) 05/09/19 04:12 Baso # (Auto) 0.1 X10^3/uL (0.0-0.1) 05/09/19 04:12 Absolute Nucleated RBC 0.0 /100WBC 05/09/19 04:12 Plt Morphology Comment Normal (NORMAL) 05/09/19 04:12 RBC Morphology Abnormal (NORMAL) 05/09/19 04:12 Hypochromasia 1+ A 05/09/19 04:12 D-Dimer 169 ng/mL (0-400) 05/07/19 15:55 Sodium 141 mmol/L (136-145) 05/09/19 04:12 Corrected Sodium TNP 05/09/19 04:12 Potassium 3.8 mmol/L (3.5-5.1) 05/09/19 04:12 Chloride 106 mmol/L (98-107) 05/09/19 04:12 Carbon Dioxide 26.5 mmol/L (21-32) 05/09/19 04:12 BUN 10 mg/dL (7-18) 05/09/19 04:12 Creatinine 0.93 mg/dL (0.70-1.30) 05/09/19 04:12 Est GFR (MDRD) Af Amer > 60 (>60) 05/09/19 04:12 Est GFR (MDRD) Non-Af > 60 (>60) 05/09/19 04:12 Glucose 89 mg/dL (65-99) 05/09/19 04:12 Calcium 8.4 mg/dL (8.5-10.1) L 05/09/19 04:12 Corrected Calcium 9.3 mg/dL (8.5-10.1) 05/09/19 04:12 Magnesium 1.8 mg/dL (1.7-2.9) 05/08/19 04:12 Total Bilirubin 0.30 mg/dL (0.2-1.0) 05/09/19 04:12 AST 16 Units/L (15-37) 05/09/19 04:12 ALT 14 Units/L (12-78) 05/09/19 04:12 Alkaline Phosphatase 58 Units/L (46-116) 05/09/19 04:12 Creatine Kinase 289 Units/L (39-308) 05/07/19 15:55 CK-MB (CK-2) 1.4 ng/mL (0-4.0) 05/07/19 15:55 CK/CKMB % Calc 0.5 % (<4) 05/07/19 15:55 Troponin I < 0.02 ng/mL (0-1.5) 05/07/19 15:55 Total Protein 6.1 g/dL (6.4-8.2) L 05/09/19 04:12 Albumin 2.9 g/dL (3.4-5.0) L 05/09/19 04:12 Globulin 3.2 g/dL (2.5-4.5) 05/09/19 04:12 Albumin/Globulin Ratio 0.9 Ratio (1.1-2.1) L 05/09/19 04:12 Specimen Type Clean catch urine 05/07/19 18:03 Urine Color Yellow (YELLOW) 05/07/19 18:03 Urine Appearance Clear (CLEAR) 05/07/19 18:03 Urine pH 6.0 (5.0 - 8.0) 05/07/19 18:03 Ur Specific [place] 1.025 (1.000-1.030) 05/07/19 18:03 Urine Protein 1+ (NEGATIVE) 05/07/19 18:03 Urine Glucose (UA) Negative (NEGATIVE) 05/07/19 18:03 Urine Ketones Negative (NEGATIVE) 05/07/19 18:03 Urine Occult Blood 3+ (NEGATIVE) 05/07/19 18:03 Urine Nitrite Negative (NEGATIVE) 05/07/19 18:03 Urine Bilirubin Negative (NEGATIVE) 05/07/19 18:03 Urine Urobilinogen Normal (NORMAL) 05/07/19 18:03 Ur Leukocyte Esterase Negative (NEGATIVE) 05/07/19 18:03 Urine RBC 5-10 /HPF (NONE SEEN) 05/07/19 18:03 Urine WBC 0-2 /HPF (NONE SEEN) 05/07/19 18:03 Ur Squamous Epith Cells Rare /HPF (NEGATIVE) 05/07/19 18:03 Urine Bacteria Negative /HPF (NEGATIVE) 05/07/19 18:03 Urine Mucus Numerous /HPF (NEGATIVE) 05/07/19 18:03 Ur Culture Indicated? No/not indicated 05/07/19 18:03 Urine Opiates Screen Negative (NEG=<300) 05/07/19 18:03 Urine Methadone Screen Negative (NEG=<300) 05/07/19 18:03 Ur Barbiturates Screen Negative (NEG=<200) 05/07/19 18:03 Ur Phencyclidine Scrn Negative (NEG=<25) 05/07/19 18:03 Ur Amphetamines Screen Negative (NEG=<1000) 05/07/19 18:03 U Benzodiazepines Scrn Negative (NEG=<200) 05/07/19 18:03 Urine Cocaine Screen Positive (NEG=<300) 05/07/19 18:03 U Marijuana (THC) Screen Positive (NEG=<50) A 05/07/19 18:03 - Plan (1) Tension pneumothorax Status: Acute Plan: CHEST TUBE, SUPPLEMENTAL OXYGEN, PAIN CONTROL, CONTINUE TO MONITOR (2) Chest pain, rule out acute myocardial infarction Status: Acute Plan: CONTINUE TO MONITOR
--- NOTE | 2019-05-09 15:19 | DR.PROGNOT ---
Hospital Progress Notes - Progress Note for Day of: Progress Note Date: 05/09/19 - Chief Complaint Chief Complaint: c/o Lt chest pain with mild SOB . chest xray shwed good placement of the chest tube , no further pneumothorax . VS are stable . - Past Medical Family Social History Past Med/Fam/Surg Hx: No changes since H&P Allergies: Allergies No Known Drug Allergies Allergy (Verified 05/07/19 20:18) - Review Of Systems ROS: No change since H&P - Vital Signs Vital Signs: Temperature 98.7 F Pulse Rate 64 Respiratory Rate 15 Blood Pressure 118/81 O2 Sat by Pulse Oximetry 100 - Physical Exam Oriented: Normal Eyes: Normal Ear: Normal Nose: Normal Throat: Normal Respiratory: Normal Cardiovascular: Normal. negative: S3, S4, Murmur : Normal GI:Auscultation: Normal GI:Palpation: Normal GI: Tenderness: Normal Skin: Normal Musculoskeletal: Normal Psychiatric: Normal Mood Description: Calm Affect: Normal Speech Pattern: Clear - Laboratory and Diagnostics Result Diagrams: 05/09/19 04:12 05/09/19 04:12 Labs: Laboratory WBC 7.5 X10^3/uL (3.6-10.0) 05/09/19 04:12 RBC 4.95 X10^6/uL (4.7-6.0) 05/09/19 04:12 Hgb 11.8 g/dL (13.5-18.0) L 05/09/19 04:12 Hct 37.2 % (42.0-54.0) L 05/09/19 04:12 MCV 75.2 fL (80.0-100.0) L 05/09/19 04:12 MCH 23.8 pg (27.0-34.0) L 05/09/19 04:12 MCHC 31.7 g/dL (33.0-35.0) L 05/09/19 04:12 RDW 15.5 % (11.6-16.5) 05/09/19 04:12 Plt Count 286 X10^3/uL (150.0-450.0) 05/09/19 04:12 Plt Count Comment Adequate (ADEQUATE) 05/09/19 04:12 MPV 7.7 fL (7.4-11.0) 05/09/19 04:12 Neut % (Auto) 63.7 % (42.0-75.0) 05/09/19 04:12 Lymph % (Auto) 20.3 % (21.0-51.0) L 05/09/19 04:12 [place] % (Auto) 12.9 % (0.0-13.0) 05/09/19 04:12 Eos % (Auto) 2.3 % (0.9-2.9) 05/09/19 04:12 Baso % (Auto) 0.8 % (0.2-1.0) 05/09/19 04:12 Neut # (Auto) 4.8 x10^3/uL (2.2-4.8) 05/09/19 04:12 Lymph # (Auto) 1.5 X10^3/uL (1.3-2.9) 05/09/19 04:12 [place] # (Auto) 1.0 x10^3/uL (0.3-0.8) H 05/09/19 04:12 Eos # (Auto) 0.2 x10^3/uL (0.0-0.2) 05/09/19 04:12 Baso # (Auto) 0.1 X10^3/uL (0.0-0.1) 05/09/19 04:12 Absolute Nucleated RBC 0.0 /100WBC 05/09/19 04:12 Plt Morphology Comment Normal (NORMAL) 05/09/19 04:12 RBC Morphology Abnormal (NORMAL) 05/09/19 04:12 Hypochromasia 1+ A 05/09/19 04:12 D-Dimer 169 ng/mL (0-400) 05/07/19 15:55 Sodium 141 mmol/L (136-145) 05/09/19 04:12 Corrected Sodium TNP 05/09/19 04:12 Potassium 3.8 mmol/L (3.5-5.1) 05/09/19 04:12 Chloride 106 mmol/L (98-107) 05/09/19 04:12 Carbon Dioxide 26.5 mmol/L (21-32) 05/09/19 04:12 BUN 10 mg/dL (7-18) 05/09/19 04:12 Creatinine 0.93 mg/dL (0.70-1.30) 05/09/19 04:12 Est GFR (MDRD) Af Amer > 60 (>60) 05/09/19 04:12 Est GFR (MDRD) Non-Af > 60 (>60) 05/09/19 04:12 Glucose 89 mg/dL (65-99) 05/09/19 04:12 Calcium 8.4 mg/dL (8.5-10.1) L 05/09/19 04:12 Corrected Calcium 9.3 mg/dL (8.5-10.1) 05/09/19 04:12 Magnesium 1.8 mg/dL (1.7-2.9) 05/08/19 04:12 Total Bilirubin 0.30 mg/dL (0.2-1.0) 05/09/19 04:12 AST 16 Units/L (15-37) 05/09/19 04:12 ALT 14 Units/L (12-78) 05/09/19 04:12 Alkaline Phosphatase 58 Units/L (46-116) 05/09/19 04:12 Creatine Kinase 289 Units/L (39-308) 05/07/19 15:55 CK-MB (CK-2) 1.4 ng/mL (0-4.0) 05/07/19 15:55 CK/CKMB % Calc 0.5 % (<4) 05/07/19 15:55 Troponin I < 0.02 ng/mL (0-1.5) 05/07/19 15:55 Total Protein 6.1 g/dL (6.4-8.2) L 05/09/19 04:12 Albumin 2.9 g/dL (3.4-5.0) L 05/09/19 04:12 Globulin 3.2 g/dL (2.5-4.5) 05/09/19 04:12 Albumin/Globulin Ratio 0.9 Ratio (1.1-2.1) L 05/09/19 04:12 Specimen Type Clean catch urine 05/07/19 18:03 Urine Color Yellow (YELLOW) 05/07/19 18:03 Urine Appearance Clear (CLEAR) 05/07/19 18:03 Urine pH 6.0 (5.0 - 8.0) 05/07/19 18:03 Ur Specific [place] 1.025 (1.000-1.030) 05/07/19 18:03 Urine Protein 1+ (NEGATIVE) 05/07/19 18:03 Urine Glucose (UA) Negative (NEGATIVE) 05/07/19 18:03 Urine Ketones Negative (NEGATIVE) 05/07/19 18:03 Urine Occult Blood 3+ (NEGATIVE) 05/07/19 18:03 Urine Nitrite Negative (NEGATIVE) 05/07/19 18:03 Urine Bilirubin Negative (NEGATIVE) 05/07/19 18:03 Urine Urobilinogen Normal (NORMAL) 05/07/19 18:03 Ur Leukocyte Esterase Negative (NEGATIVE) 05/07/19 18:03 Urine RBC 5-10 /HPF (NONE SEEN) 05/07/19 18:03 Urine WBC 0-2 /HPF (NONE SEEN) 05/07/19 18:03 Ur Squamous Epith Cells Rare /HPF (NEGATIVE) 05/07/19 18:03 Urine Bacteria Negative /HPF (NEGATIVE) 05/07/19 18:03 Urine Mucus Numerous /HPF (NEGATIVE) 05/07/19 18:03 Ur Culture Indicated? No/not indicated 05/07/19 18:03 Urine Opiates Screen Negative (NEG=<300) 05/07/19 18:03 Urine Methadone Screen Negative (NEG=<300) 05/07/19 18:03 Ur Barbiturates Screen Negative (NEG=<200) 05/07/19 18:03 Ur Phencyclidine Scrn Negative (NEG=<25) 05/07/19 18:03 Ur Amphetamines Screen Negative (NEG=<1000) 05/07/19 18:03 U Benzodiazepines Scrn Negative (NEG=<200) 05/07/19 18:03 Urine Cocaine Screen Positive (NEG=<300) 05/07/19 18:03 U Marijuana (THC) Screen Positive (NEG=<50) A 05/07/19 18:03 - Assessment and Plan 1: spontaneous Lt pneumothorax , s/p placement of chest tube . areas of bollous changes Lt lung appex ( possible future recurrence of pneumo thorax ) . will keep chest tube for few days till no more air leak . - Problem Patient Problems: Patient Problems Tension pneumothorax (Acute) J93.0 Chest pain, rule out acute myocardial infarction (Acute) R07.9
[2019-05-09] MEDS: TORADOL 30 MG VIAL IVP PRN (18:50)
[2019-05-10 05:27] LABS: BASOPHILS # (AUTO) 0.1 X10^3/uL (0.0-0.1); BASOPHILS % (AUTO) 0.7 % (0.2-1.0); EOSINOPHILS # (AUTO) 0.2 x10^3/uL (0.0-0.2); EOSINOPHILS % (AUTO) 1.7 % (0.9-2.9); HEMATOCRIT 38.9 % (42.0-54.0); HEMOGLOBIN 12.1 g/dL (13.5-18.0); LYMPHOCYTES # (AUTO) 1.4 X10^3/uL (1.3-2.9); LYMPHOCYTES % (AUTO) 10.7 % (21.0-51.0); MEAN CORPUSCULAR HEMOGLOBIN 23.4 pg (27.0-34.0); MEAN CORPUSCULAR HGB CONC 31.2 g/dL (33.0-35.0); MEAN PLATELET VOLUME 7.5 fL (7.4-11.0); MONOCYTES # (AUTO) 1.3 x10^3/uL (0.3-0.8); MONOCYTES % (AUTO) 10.3 % (0.0-13.0); NEUTROPHILS # (AUTO) 9.7 x10^3/uL (2.2-4.8); NEUTROPHILS % (AUTO) 76.6 % (42.0-75.0); PLATELET COUNT 321 X10^3/uL (150.0-450.0); RED BLOOD COUNT 5.18 X10^6/uL (4.7-6.0); RED CELL DISTRIBUTION WIDTH 15.4 % (11.6-16.5); WHITE BLOOD COUNT 12.7 X10^3/uL (3.6-10.0)
[2019-05-10 05:33] LABS: ALANINE AMINOTRANSFERASE < 6 Units/L (12-78); ALKALINE PHOSPHATASE 63 Units/L (46-116); ASPARTATE AMINO TRANSFERASE 16 Units/L (15-37); BLOOD UREA NITROGEN 8 mg/dL (7-18); CALCIUM 8.7 mg/dL (8.5-10.1); CARBON DIOXIDE 26.2 mmol/L (21-32); CHLORIDE 106 mmol/L (98-107); COR CA(FOR HYPOALB) 9.5 mg/dL (8.5-10.1); CREATININE 1.01 mg/dL (0.70-1.30); SODIUM 141 mmol/L (136-145); TOTAL PROTEIN 6.4 g/dL (6.4-8.2); eGFR NON BLACK RACES > 60 (>60)
[2019-05-10 06:14] LABS: HYPOCHROMASIA 1+; PLATELET MORPHOLOGY COMMENT NORMAL (NORMAL)
--- NOTE | 2019-05-10 06:41 | RAD ---
HISTORY: Follow-up pneumothorax Study: Chest AP portable Comparison: 05/09/2019 Findings: A left chest tube remains in place. There has been an increase in the size of the residual left pneumothorax being followed particularly along the lateral chest wall and in the left lung base. The heart is mildly enlarged. No congestive heart failure is noted. No infiltrates are identified. Bullous changes present in the left lung apex. The bony thorax is unremarkable. IMPRESSION: Mild increase in the size of the left pneumothorax when compared with the prior examination Stable left apical bullous changes Minimal cardiomegaly without congestive heart failure No acute infiltrates Reported By:
[2019-05-10] MEDS: TORADOL 30 MG VIAL IVP PRN ×2 (07:48→18:50)
--- NOTE | 2019-05-10 08:01 | DR.PROGNOT ---
Hospital Progress Notes - Progress Note for Day of: Progress Note Date: 05/10/19 - Chief Complaint Chief Complaint: chest tube was disconnected last night with subsequent small lower pneumothorax .. it was placed again to [facility]. VS are stable with normal Po2 - Past Medical Family Social History Past Med/Fam/Surg Hx: No changes since H&P Allergies: Allergies No Known Drug Allergies Allergy (Verified 05/07/19 20:18) - Review Of Systems ROS: No change since H&P - Vital Signs Vital Signs: Temperature 98.8 F Pulse Rate 71 Respiratory Rate 21 Blood Pressure 120/82 O2 Sat by Pulse Oximetry 97 - Physical Exam Oriented: Normal Eyes: Normal Ear: Normal Nose: Normal Throat: Normal Respiratory: Normal Cardiovascular: Normal. negative: S3, S4, Murmur : Normal GI:Auscultation: Normal GI:Palpation: Normal GI: Tenderness: Normal Skin: Normal Musculoskeletal: Normal Psychiatric: Normal Mood Description: Calm Affect: Normal Speech Pattern: Clear - Laboratory and Diagnostics Result Diagrams: 05/10/19 04:27 05/10/19 04:27 Labs: Laboratory WBC 12.7 X10^3/uL (3.6-10.0) H 05/10/19 04:27 RBC 5.18 X10^6/uL (4.7-6.0) 05/10/19 04:27 Hgb 12.1 g/dL (13.5-18.0) L 05/10/19 04:27 Hct 38.9 % (42.0-54.0) L 05/10/19 04:27 MCV 75.0 fL (80.0-100.0) L 05/10/19 04:27 MCH 23.4 pg (27.0-34.0) L 05/10/19 04:27 MCHC 31.2 g/dL (33.0-35.0) L 05/10/19 04:27 RDW 15.4 % (11.6-16.5) 05/10/19 04:27 Plt Count 321 X10^3/uL (150.0-450.0) 05/10/19 04:27 Plt Count Comment Adequate (ADEQUATE) 05/10/19 04:27 MPV 7.5 fL (7.4-11.0) 05/10/19 04:27 Neut % (Auto) 76.6 % (42.0-75.0) H 05/10/19 04:27 Lymph % (Auto) 10.7 % (21.0-51.0) L 05/10/19 04:27 [place] % (Auto) 10.3 % (0.0-13.0) 05/10/19 04:27 Eos % (Auto) 1.7 % (0.9-2.9) 05/10/19 04:27 Baso % (Auto) 0.7 % (0.2-1.0) 05/10/19 04:27 Neut # (Auto) 9.7 x10^3/uL (2.2-4.8) H 05/10/19 04:27 Lymph # (Auto) 1.4 X10^3/uL (1.3-2.9) 05/10/19 04:27 [place] # (Auto) 1.3 x10^3/uL (0.3-0.8) H 05/10/19 04:27 Eos # (Auto) 0.2 x10^3/uL (0.0-0.2) 05/10/19 04:27 Baso # (Auto) 0.1 X10^3/uL (0.0-0.1) 05/10/19 04:27 Absolute Nucleated RBC 0.0 /100WBC 05/10/19 04:27 Plt Morphology Comment Normal (NORMAL) 05/10/19 04:27 RBC Morphology Abnormal (NORMAL) 05/10/19 04:27 Hypochromasia 1+ A 05/10/19 04:27 D-Dimer 169 ng/mL (0-400) 05/07/19 15:55 Sodium 141 mmol/L (136-145) 05/10/19 04:27 Corrected Sodium TNP 05/10/19 04:27 Potassium 3.9 mmol/L (3.5-5.1) 05/10/19 04:27 Chloride 106 mmol/L (98-107) 05/10/19 04:27 Carbon Dioxide 26.2 mmol/L (21-32) 05/10/19 04:27 BUN 8 mg/dL (7-18) 05/10/19 04:27 Creatinine 1.01 mg/dL (0.70-1.30) 05/10/19 04:27 Est GFR (MDRD) Af Amer > 60 (>60) 05/10/19 04:27 Est GFR (MDRD) Non-Af > 60 (>60) 05/10/19 04:27 Glucose 89 mg/dL (65-99) 05/10/19 04:27 Calcium 8.7 mg/dL (8.5-10.1) 05/10/19 04:27 Corrected Calcium 9.5 mg/dL (8.5-10.1) 05/10/19 04:27 Magnesium 1.8 mg/dL (1.7-2.9) 05/08/19 04:12 Total Bilirubin 0.40 mg/dL (0.2-1.0) 05/10/19 04:27 AST 16 Units/L (15-37) 05/10/19 04:27 ALT < 6 Units/L (12-78) L 05/10/19 04:27 Alkaline Phosphatase 63 Units/L (46-116) 05/10/19 04:27 Creatine Kinase 289 Units/L (39-308) 05/07/19 15:55 CK-MB (CK-2) 1.4 ng/mL (0-4.0) 05/07/19 15:55 CK/CKMB % Calc 0.5 % (<4) 05/07/19 15:55 Troponin I < 0.02 ng/mL (0-1.5) 05/07/19 15:55 Total Protein 6.4 g/dL (6.4-8.2) 05/10/19 04:27 Albumin 3.0 g/dL (3.4-5.0) L 05/10/19 04:27 Globulin 3.4 g/dL (2.5-4.5) 05/10/19 04:27 Albumin/Globulin Ratio 0.9 Ratio (1.1-2.1) L 05/10/19 04:27 Specimen Type Clean catch urine 05/07/19 18:03 Urine Color Yellow (YELLOW) 05/07/19 18:03 Urine Appearance Clear (CLEAR) 05/07/19 18:03 Urine pH 6.0 (5.0 - 8.0) 05/07/19 18:03 Ur Specific [place] 1.025 (1.000-1.030) 05/07/19 18:03 Urine Protein 1+ (NEGATIVE) 05/07/19 18:03 Urine Glucose (UA) Negative (NEGATIVE) 05/07/19 18:03 Urine Ketones Negative (NEGATIVE) 05/07/19 18:03 Urine Occult Blood 3+ (NEGATIVE) 05/07/19 18:03 Urine Nitrite Negative (NEGATIVE) 05/07/19 18:03 Urine Bilirubin Negative (NEGATIVE) 05/07/19 18:03 Urine Urobilinogen Normal (NORMAL) 05/07/19 18:03 Ur Leukocyte Esterase Negative (NEGATIVE) 05/07/19 18:03 Urine RBC 5-10 /HPF (NONE SEEN) 05/07/19 18:03 Urine WBC 0-2 /HPF (NONE SEEN) 05/07/19 18:03 Ur Squamous Epith Cells Rare /HPF (NEGATIVE) 05/07/19 18:03 Urine Bacteria Negative /HPF (NEGATIVE) 05/07/19 18:03 Urine Mucus Numerous /HPF (NEGATIVE) 05/07/19 18:03 Ur Culture Indicated? No/not indicated 05/07/19 18:03 Urine Opiates Screen Negative (NEG=<300) 05/07/19 18:03 Urine Methadone Screen Negative (NEG=<300) 05/07/19 18:03 Ur Barbiturates Screen Negative (NEG=<200) 05/07/19 18:03 Ur Phencyclidine Scrn Negative (NEG=<25) 05/07/19 18:03 Ur Amphetamines Screen Negative (NEG=<1000) 05/07/19 18:03 U Benzodiazepines Scrn Negative (NEG=<200) 05/07/19 18:03 Urine Cocaine Screen Positive (NEG=<300) 05/07/19 18:03 U Marijuana (THC) Screen Positive (NEG=<50) A 05/07/19 18:03 - Assessment and Plan 1: spontaneous Lt pneumothorax , s/p placement of chest tube . areas of bollous changes Lt lung appex ( possible future recurrence of pneumo thorax ) . will keep chest tube to [facility] today .. - Problem Patient Problems: Patient Problems Tension pneumothorax (Acute) J93.0 Chest pain, rule out acute myocardial infarction (Acute) R07.9
[2019-05-10] MEDS: LEVAQUIN PREMIX IV 500 MG 500 MG/100 ML BAG IV SCH (08:10)
--- NOTE | 2019-05-10 08:22 | RAD ---
HISTORY: Shortness of breath, chest tube placement, left-sided pneumothorax Study: Single-view chest, done portably Comparison: 05/09/2019. Findings: Left-sided chest tube is again seen with the tube extending to the left upper lobe region. There is 10-15% left-sided pneumothorax involving the left lung base. Bolus changes are present involving the left upper lobe. Improving atelectasis is seen in the lung bases bilaterally. Trachea is midline. Heart size is normal. There is aortic uncoiling. Osseous structures are intact. IMPRESSION: Recurrent pneumothorax on the left with about 10-15% in the left lung base. The position of the left chest tube appears satisfactory. Improving bibasilar atelectasis. Reported By:
[2019-05-10] MEDS: NS 1000 ML 1,000 ML IV SCH (10:38)
--- NOTE | 2019-05-10 18:14 | PCM.PROG ---
Progress Note - Progress Note for Day of Date of Exam: 05/10/19 - Subjective Subjective: WAS ADMITTED FOR A TENSION PNEUMOTHORAX AND CHEST PAIN. TODAY, HE IS ALERT AND ORIENTED, LYING IN BED ON MORNING ROUNDS. HE REPORTS LEFT SIDED PAIN. THE CHEST TUBE GOT PULLED OUT LAST NIGHT AND HAD TO BE REINSERTED. ON EXAMINATION, HEART IS REGULAR IN RATE AND RHYTHM. BILATERAL LUNGS ARE NOTED WITH DIMINISHED LUNG SOUNDS THROUGHOUT. ABDOMEN IS ROUND, SOFT, AND NON-TENDER WITH NORMAL BOWEL SOUNDS NOTED IN ALL QUADRANTS. HIS VITALS THIS MORNING ARE: 98.6-87-31-97%-128/86. LABS WERE OBTAINED. ABNORMAL LAB VALUES INCLUDE THE FOLLOWING: WBC 12.7, HGB 12.1, HCT 38.9, ALT <6, ALBUMIN 3.0. A CHEST XRAY WAS OBTAINED TODAY AND REVEALED: Recurrent pneumothorax on the left with about 10- 15% in the left lung base. The position of the left chest tube appears satisfactory. Improving bibasilar atelectasis. HE IS CURRENTLY RECEIVING NORMAL SALINE AT 75ML/HR AND LEVAQUIN 500MG IV DAILY. TODAY, WE WILL DISCONTINUE THE MORPHINE AND CONTINUE WITH THE TORADOL. OTHERWISE, WE WILL FOLLOW UP WITH AM LABS AND CONTINUE TO MONITOR. - Past Medical Family Social History Past Med/Fam/Surg Hx: No changes since H&P Allergies: Allergies No Known Drug Allergies Allergy (Verified 05/07/19 20:18) - Review of Systems ROS: No change since H&P - Vital Signs and I&O's Vital Signs: Temperature 98.7 F Pulse Rate 92 Respiratory Rate 25 Blood Pressure 128/87 O2 Sat by Pulse Oximetry 99 Intake and Output: Intake & Output 05/08/19 05/09/19 05/10/19 05/11/19 11:59 11:59 11:59 11:59 Intake Total 1865 / 1865 4345 / 4345 2957 / 2957 335 / 335 Output Total 245 / 245 1645 / 1645 1934 / 1934 120 / 120 Balance 1620 / 1620 2700 / 2700 1023 / 1023 215 / 215 - Physical Exam Oriented: Normal Eyes: Normal Ear: Normal Nose: Normal Throat: Normal Respiratory: Normal Cardiovascular: Normal. negative: S3, S4, Murmur : Normal Auscultation: Bowel Sounds: Normal Tenderness: Normal Skin: Normal Musculoskeletal: Normal Psychiatric: Normal Mood Description: Calm Affect: Normal Speech Pattern: Clear - Laboratory and Diagnostics Result Diagrams: 05/10/19 04:27 05/10/19 04:27 Labs: Laboratory WBC 12.7 X10^3/uL (3.6-10.0) H 05/10/19 04:27 RBC 5.18 X10^6/uL (4.7-6.0) 05/10/19 04:27 Hgb 12.1 g/dL (13.5-18.0) L 05/10/19 04:27 Hct 38.9 % (42.0-54.0) L 05/10/19 04:27 MCV 75.0 fL (80.0-100.0) L 05/10/19 04:27 MCH 23.4 pg (27.0-34.0) L 05/10/19 04:27 MCHC 31.2 g/dL (33.0-35.0) L 05/10/19 04:27 RDW 15.4 % (11.6-16.5) 05/10/19 04:27 Plt Count 321 X10^3/uL (150.0-450.0) 05/10/19 04:27 Plt Count Comment Adequate (ADEQUATE) 05/10/19 04:27 MPV 7.5 fL (7.4-11.0) 05/10/19 04:27 Neut % (Auto) 76.6 % (42.0-75.0) H 05/10/19 04:27 Lymph % (Auto) 10.7 % (21.0-51.0) L 05/10/19 04:27 [place] % (Auto) 10.3 % (0.0-13.0) 05/10/19 04:27 Eos % (Auto) 1.7 % (0.9-2.9) 05/10/19 04:27 Baso % (Auto) 0.7 % (0.2-1.0) 05/10/19 04:27 Neut # (Auto) 9.7 x10^3/uL (2.2-4.8) H 05/10/19 04:27 Lymph # (Auto) 1.4 X10^3/uL (1.3-2.9) 05/10/19 04:27 [place] # (Auto) 1.3 x10^3/uL (0.3-0.8) H 05/10/19 04:27 Eos # (Auto) 0.2 x10^3/uL (0.0-0.2) 05/10/19 04:27 Baso # (Auto) 0.1 X10^3/uL (0.0-0.1) 05/10/19 04:27 Absolute Nucleated RBC 0.0 /100WBC 05/10/19 04:27 Plt Morphology Comment Normal (NORMAL) 05/10/19 04:27 RBC Morphology Abnormal (NORMAL) 05/10/19 04:27 Hypochromasia 1+ A 05/10/19 04:27 D-Dimer 169 ng/mL (0-400) 05/07/19 15:55 Sodium 141 mmol/L (136-145) 05/10/19 04:27 Corrected Sodium TNP 05/10/19 04:27 Potassium 3.9 mmol/L (3.5-5.1) 05/10/19 04:27 Chloride 106 mmol/L (98-107) 05/10/19 04:27 Carbon Dioxide 26.2 mmol/L (21-32) 05/10/19 04:27 BUN 8 mg/dL (7-18) 05/10/19 04:27 Creatinine 1.01 mg/dL (0.70-1.30) 05/10/19 04:27 Est GFR (MDRD) Af Amer > 60 (>60) 05/10/19 04:27 Est GFR (MDRD) Non-Af > 60 (>60) 05/10/19 04:27 Glucose 89 mg/dL (65-99) 05/10/19 04:27 Calcium 8.7 mg/dL (8.5-10.1) 05/10/19 04:27 Corrected Calcium 9.5 mg/dL (8.5-10.1) 05/10/19 04:27 Magnesium 1.8 mg/dL (1.7-2.9) 05/08/19 04:12 Total Bilirubin 0.40 mg/dL (0.2-1.0) 05/10/19 04:27 AST 16 Units/L (15-37) 05/10/19 04:27 ALT < 6 Units/L (12-78) L 05/10/19 04:27 Alkaline Phosphatase 63 Units/L (46-116) 05/10/19 04:27 Creatine Kinase 289 Units/L (39-308) 05/07/19 15:55 CK-MB (CK-2) 1.4 ng/mL (0-4.0) 05/07/19 15:55 CK/CKMB % Calc 0.5 % (<4) 05/07/19 15:55 Troponin I < 0.02 ng/mL (0-1.5) 05/07/19 15:55 Total Protein 6.4 g/dL (6.4-8.2) 05/10/19 04:27 Albumin 3.0 g/dL (3.4-5.0) L 05/10/19 04:27 Globulin 3.4 g/dL (2.5-4.5) 05/10/19 04:27 Albumin/Globulin Ratio 0.9 Ratio (1.1-2.1) L 05/10/19 04:27 Specimen Type Clean catch urine 05/07/19 18:03 Urine Color Yellow (YELLOW) 05/07/19 18:03 Urine Appearance Clear (CLEAR) 05/07/19 18:03 Urine pH 6.0 (5.0 - 8.0) 05/07/19 18:03 Ur Specific [place] 1.025 (1.000-1.030) 05/07/19 18:03 Urine Protein 1+ (NEGATIVE) 05/07/19 18:03 Urine Glucose (UA) Negative (NEGATIVE) 05/07/19 18:03 Urine Ketones Negative (NEGATIVE) 05/07/19 18:03 Urine Occult Blood 3+ (NEGATIVE) 05/07/19 18:03 Urine Nitrite Negative (NEGATIVE) 05/07/19 18:03 Urine Bilirubin Negative (NEGATIVE) 05/07/19 18:03 Urine Urobilinogen Normal (NORMAL) 05/07/19 18:03 Ur Leukocyte Esterase Negative (NEGATIVE) 05/07/19 18:03 Urine RBC 5-10 /HPF (NONE SEEN) 05/07/19 18:03 Urine WBC 0-2 /HPF (NONE SEEN) 05/07/19 18:03 Ur Squamous Epith Cells Rare /HPF (NEGATIVE) 05/07/19 18:03 Urine Bacteria Negative /HPF (NEGATIVE) 05/07/19 18:03 Urine Mucus Numerous /HPF (NEGATIVE) 05/07/19 18:03 Ur Culture Indicated? No/not indicated 05/07/19 18:03 Urine Opiates Screen Negative (NEG=<300) 05/07/19 18:03 Urine Methadone Screen Negative (NEG=<300) 05/07/19 18:03 Ur Barbiturates Screen Negative (NEG=<200) 05/07/19 18:03 Ur Phencyclidine Scrn Negative (NEG=<25) 05/07/19 18:03 Ur Amphetamines Screen Negative (NEG=<1000) 05/07/19 18:03 U Benzodiazepines Scrn Negative (NEG=<200) 05/07/19 18:03 Urine Cocaine Screen Positive (NEG=<300) 05/07/19 18:03 U Marijuana (THC) Screen Positive (NEG=<50) A 05/07/19 18:03 - Plan (1) Tension pneumothorax Status: Acute Plan: CHEST TUBE, SUPPLEMENTAL OXYGEN, PAIN CONTROL, CONTINUE TO MONITOR (2) Chest pain, rule out acute myocardial infarction Status: Acute Plan: CONTINUE TO MONITOR
--- NOTE | 2019-05-11 06:15 | RAD ---
HISTORY: Shortness of breath, follow-up pneumothorax Study: Chest AP portable Comparison: 05/10/2019 Findings: The heart is mildly enlarged. No congestive heart failure is noted. The mayi are normal. The lungs are free of acute infiltrates. There is a left chest tube in place. No definite residual pneumothorax is identified. Bullous changes present in the left lung apex. The bony thorax is unremarkable. IMPRESSION: No definite residual left pneumothorax Stable apical bullous changes on the left Minimal cardiomegaly without congestive heart failure No acute infiltrates Reported By:
[2019-05-11 06:48] LABS: BASOPHILS # (AUTO) 0.1 X10^3/uL (0.0-0.1); BASOPHILS % (AUTO) 0.8 % (0.2-1.0); EOSINOPHILS # (AUTO) 0.2 x10^3/uL (0.0-0.2); EOSINOPHILS % (AUTO) 3.4 % (0.9-2.9); HEMATOCRIT 38.1 % (42.0-54.0); HEMOGLOBIN 12.2 g/dL (13.5-18.0); LYMPHOCYTES # (AUTO) 1.6 X10^3/uL (1.3-2.9); LYMPHOCYTES % (AUTO) 22.1 % (21.0-51.0); MEAN CORPUSCULAR HEMOGLOBIN 23.6 pg (27.0-34.0); MEAN CORPUSCULAR HGB CONC 31.9 g/dL (33.0-35.0); MEAN CORPUSCULAR VOLUME 73.8 fL (80.0-100.0); MEAN PLATELET VOLUME 6.9 fL (7.4-11.0); MONOCYTES # (AUTO) 0.9 x10^3/uL (0.3-0.8); MONOCYTES % (AUTO) 13.2 % (0.0-13.0); NEUTROPHILS # (AUTO) 4.3 x10^3/uL (2.2-4.8); NEUTROPHILS % (AUTO) 60.5 % (42.0-75.0); PLATELET COUNT 344 X10^3/uL (150.0-450.0); RED BLOOD COUNT 5.16 X10^6/uL (4.7-6.0); RED CELL DISTRIBUTION WIDTH 15.3 % (11.6-16.5)
[2019-05-11 07:06] LABS: ALANINE AMINOTRANSFERASE 13 Units/L (12-78); ALBUMIN 2.9 g/dL (3.4-5.0); ALKALINE PHOSPHATASE 63 Units/L (46-116); ASPARTATE AMINO TRANSFERASE 17 Units/L (15-37); BLOOD UREA NITROGEN 9 mg/dL (7-18); CALCIUM 8.7 mg/dL (8.5-10.1); CARBON DIOXIDE 27.2 mmol/L (21-32); CHLORIDE 106 mmol/L (98-107); COR CA(FOR HYPOALB) 9.6 mg/dL (8.5-10.1); CREATININE 0.97 mg/dL (0.70-1.30); SODIUM 141 mmol/L (136-145); TOTAL PROTEIN 6.2 g/dL (6.4-8.2); eGFR NON BLACK RACES > 60 (>60)
[2019-05-11 07:23] LABS: HYPOCHROMASIA SLIGHT; PLATELET MORPHOLOGY COMMENT NORMAL (NORMAL)
[2019-05-11] MEDS: LEVAQUIN PREMIX IV 500 MG 500 MG/100 ML BAG IV SCH (09:29)
[2019-05-11] MEDS: TORADOL 30 MG VIAL IVP PRN ×2 (09:30→18:36)
--- NOTE | 2019-05-11 10:21 | DR.PROGNOT ---
Hospital Progress Notes - Progress Note for Day of: Progress Note Date: 05/11/19 - Chief Complaint Chief Complaint: no c/o . chest xray showed no further pneumothorax . stable VS . - Past Medical Family Social History Past Med/Fam/Surg Hx: No changes since H&P Allergies: Allergies No Known Drug Allergies Allergy (Verified 05/07/19 20:18) - Review Of Systems ROS: No change since H&P - Vital Signs Vital Signs: Temperature 98.0 F Pulse Rate 88 Respiratory Rate 18 Blood Pressure 116/75 O2 Sat by Pulse Oximetry 98 - Physical Exam Oriented: Normal Eyes: Normal Ear: Normal Nose: Normal Throat: Normal Respiratory: Normal Cardiovascular: Normal. negative: S3, S4, Murmur : Normal GI:Auscultation: Normal GI:Palpation: Normal GI: Tenderness: Normal Skin: Normal Musculoskeletal: Normal Psychiatric: Normal Mood Description: Calm Affect: Normal Speech Pattern: Clear - Laboratory and Diagnostics Result Diagrams: 05/11/19 05:43 05/11/19 05:43 Labs: Laboratory WBC 7.0 X10^3/uL (3.6-10.0) 05/11/19 05:43 RBC 5.16 X10^6/uL (4.7-6.0) 05/11/19 05:43 Hgb 12.2 g/dL (13.5-18.0) L 05/11/19 05:43 Hct 38.1 % (42.0-54.0) L 05/11/19 05:43 MCV 73.8 fL (80.0-100.0) L 05/11/19 05:43 MCH 23.6 pg (27.0-34.0) L 05/11/19 05:43 MCHC 31.9 g/dL (33.0-35.0) L 05/11/19 05:43 RDW 15.3 % (11.6-16.5) 05/11/19 05:43 Plt Count 344 X10^3/uL (150.0-450.0) 05/11/19 05:43 Plt Count Comment Adequate (ADEQUATE) 05/11/19 05:43 MPV 6.9 fL (7.4-11.0) L 05/11/19 05:43 Neut % (Auto) 60.5 % (42.0-75.0) 05/11/19 05:43 Lymph % (Auto) 22.1 % (21.0-51.0) 05/11/19 05:43 [place] % (Auto) 13.2 % (0.0-13.0) H 05/11/19 05:43 Eos % (Auto) 3.4 % (0.9-2.9) H 05/11/19 05:43 Baso % (Auto) 0.8 % (0.2-1.0) 05/11/19 05:43 Neut # (Auto) 4.3 x10^3/uL (2.2-4.8) 05/11/19 05:43 Lymph # (Auto) 1.6 X10^3/uL (1.3-2.9) 05/11/19 05:43 [place] # (Auto) 0.9 x10^3/uL (0.3-0.8) H 05/11/19 05:43 Eos # (Auto) 0.2 x10^3/uL (0.0-0.2) 05/11/19 05:43 Baso # (Auto) 0.1 X10^3/uL (0.0-0.1) 05/11/19 05:43 Absolute Nucleated RBC 0.0 /100WBC 05/11/19 05:43 Plt Morphology Comment Normal (NORMAL) 05/11/19 05:43 RBC Morphology Abnormal (NORMAL) 05/11/19 05:43 Hypochromasia Slight A 05/11/19 05:43 D-Dimer 169 ng/mL (0-400) 05/07/19 15:55 Sodium 141 mmol/L (136-145) 05/11/19 05:43 Corrected Sodium TNP 05/11/19 05:43 Potassium 3.9 mmol/L (3.5-5.1) 05/11/19 05:43 Chloride 106 mmol/L (98-107) 05/11/19 05:43 Carbon Dioxide 27.2 mmol/L (21-32) 05/11/19 05:43 BUN 9 mg/dL (7-18) 05/11/19 05:43 Creatinine 0.97 mg/dL (0.70-1.30) 05/11/19 05:43 Est GFR (MDRD) Af Amer > 60 (>60) 05/11/19 05:43 Est GFR (MDRD) Non-Af > 60 (>60) 05/11/19 05:43 Glucose 86 mg/dL (65-99) 05/11/19 05:43 Calcium 8.7 mg/dL (8.5-10.1) 05/11/19 05:43 Corrected Calcium 9.6 mg/dL (8.5-10.1) 05/11/19 05:43 Magnesium 1.8 mg/dL (1.7-2.9) 05/08/19 04:12 Total Bilirubin 0.30 mg/dL (0.2-1.0) 05/11/19 05:43 AST 17 Units/L (15-37) 05/11/19 05:43 ALT 13 Units/L (12-78) 05/11/19 05:43 Alkaline Phosphatase 63 Units/L (46-116) 05/11/19 05:43 Creatine Kinase 289 Units/L (39-308) 05/07/19 15:55 CK-MB (CK-2) 1.4 ng/mL (0-4.0) 05/07/19 15:55 CK/CKMB % Calc 0.5 % (<4) 05/07/19 15:55 Troponin I < 0.02 ng/mL (0-1.5) 05/07/19 15:55 Total Protein 6.2 g/dL (6.4-8.2) L 05/11/19 05:43 Albumin 2.9 g/dL (3.4-5.0) L 05/11/19 05:43 Globulin 3.3 g/dL (2.5-4.5) 05/11/19 05:43 Albumin/Globulin Ratio 0.9 Ratio (1.1-2.1) L 05/11/19 05:43 Specimen Type Clean catch urine 05/07/19 18:03 Urine Color Yellow (YELLOW) 05/07/19 18:03 Urine Appearance Clear (CLEAR) 05/07/19 18:03 Urine pH 6.0 (5.0 - 8.0) 05/07/19 18:03 Ur Specific [place] 1.025 (1.000-1.030) 05/07/19 18:03 Urine Protein 1+ (NEGATIVE) 05/07/19 18:03 Urine Glucose (UA) Negative (NEGATIVE) 05/07/19 18:03 Urine Ketones Negative (NEGATIVE) 05/07/19 18:03 Urine Occult Blood 3+ (NEGATIVE) 05/07/19 18:03 Urine Nitrite Negative (NEGATIVE) 05/07/19 18:03 Urine Bilirubin Negative (NEGATIVE) 05/07/19 18:03 Urine Urobilinogen Normal (NORMAL) 05/07/19 18:03 Ur Leukocyte Esterase Negative (NEGATIVE) 05/07/19 18:03 Urine RBC 5-10 /HPF (NONE SEEN) 05/07/19 18:03 Urine WBC 0-2 /HPF (NONE SEEN) 05/07/19 18:03 Ur Squamous Epith Cells Rare /HPF (NEGATIVE) 05/07/19 18:03 Urine Bacteria Negative /HPF (NEGATIVE) 05/07/19 18:03 Urine Mucus Numerous /HPF (NEGATIVE) 05/07/19 18:03 Ur Culture Indicated? No/not indicated 05/07/19 18:03 Urine Opiates Screen Negative (NEG=<300) 05/07/19 18:03 Urine Methadone Screen Negative (NEG=<300) 05/07/19 18:03 Ur Barbiturates Screen Negative (NEG=<200) 05/07/19 18:03 Ur Phencyclidine Scrn Negative (NEG=<25) 05/07/19 18:03 Ur Amphetamines Screen Negative (NEG=<1000) 05/07/19 18:03 U Benzodiazepines Scrn Negative (NEG=<200) 05/07/19 18:03 Urine Cocaine Screen Positive (NEG=<300) 05/07/19 18:03 U Marijuana (THC) Screen Positive (NEG=<50) A 05/07/19 18:03 - Assessment and Plan 1: spontaneous Lt pneumothorax , s/p placement of chest tube . areas of bollous changes Lt lung appex. will clamp chest tube and repeat chest xray this PM . - Problem Patient Problems: Patient Problems Tension pneumothorax (Acute) J93.0 Chest pain, rule out acute myocardial infarction (Acute) R07.9
--- NOTE | 2019-05-11 16:42 | RAD ---
HISTORY: Follow-up pneumothorax. Study: Portable chest. Comparison: Chest x-ray dated same day at 5:20 a.m. Findings: The trachea is midline. The cardiac silhouette is unremarkable. Stable appearance of a left chest tube without obvious residual pneumothorax. Suggestion of multiple large bulla within the left upper lobe. No obvious pleural effusion or focal consolidation. The bony thorax is unremarkable. IMPRESSION: Stable appearance of a left chest tube without obvious residual pneumothorax. Reported By:
--- NOTE | 2019-05-11 20:17 | PCM.PROG ---
Progress Note - Progress Note for Day of Date of Exam: 05/11/19 - Subjective Subjective: WAS ADMITTED FOR A TENSION PNEUMOTHORAX AND CHEST PAIN. TODAY, HE IS ALERT AND ORIENTED, LYING IN BED ON MORNING ROUNDS. HE CONTINUES WITH A LEFT SIDED CHEST TUBE. ON EXAMINATION, HEART IS REGULAR IN RATE AND RHYTHM. BILATERAL LUNGS ARE NOTED WITH DIMINISHED LUNG SOUNDS THROUGHOUT. A BDOMEN IS ROUND, SOFT, AND NON-TENDER WITH NORMAL BOWEL SOUNDS NOTED IN ALL QUADRANTS. HIS VITALS THIS MORNING ARE: 98.2-83-24-99%-121/79. LABS WERE OBTAINED. ABNORMAL LAB VALUES INCLUDE THE FOLLOWING: HGB 12.2, HCT 38.1, TOTAL PROTEIN 6.2, ALBUMIN 2.9. A CHEST XRAY WAS OBTAINED TODAY AND REVEALED: No definite residual left pneumothorax. Stable apical bullous changes on the left. Minimal cardiomegaly without congestive heart failure. No acute infiltrates. HE IS CURRENTLY RECEIVING NORMAL SALINE AT 75ML/HR AND LEVAQUIN 500MG IV DAILY. SAW PATIENT THIS MORNING AND PLANS TO CLAMP CHEST TUBE. WE ARE IN AGREEMENT WITH PLAN. OTHERWISE, WE WILL FOLLOW UP WITH AM LABS AND CONTINUE TO MONITOR. - Past Medical Family Social History Past Med/Fam/Surg Hx: No changes since H&P Allergies: Allergies No Known Drug Allergies Allergy (Verified 05/07/19 20:18) - Review of Systems ROS: No change since H&P - Vital Signs and I&O's Vital Signs: Temperature 99.6 F Pulse Rate 77 Respiratory Rate 20 Blood Pressure 133/82 O2 Sat by Pulse Oximetry 99 Intake and Output: Intake & Output 05/09/19 05/10/19 05/11/19 05/12/19 11:59 11:59 11:59 11:59 Intake Total 4345 / 4345 2957 / 2957 1954 / 1954 570 / 570 Output Total 1645 / 1645 1934 / 1934 471 / 471 Balance 2700 / 2700 1023 / 1023 1484 / 1484 570 / 570 - Physical Exam Oriented: Normal Eyes: Normal Ear: Normal Nose: Normal Throat: Normal Respiratory: Normal Cardiovascular: Normal. negative: S3, S4, Murmur : Normal Auscultation: Bowel Sounds: Normal Tenderness: Normal Skin: Normal Musculoskeletal: Normal Psychiatric: Normal Mood Description: Calm Affect: Normal Speech Pattern: Clear - Laboratory and Diagnostics Result Diagrams: 05/11/19 05:43 05/11/19 05:43 Labs: Laboratory WBC 7.0 X10^3/uL (3.6-10.0) 05/11/19 05:43 RBC 5.16 X10^6/uL (4.7-6.0) 05/11/19 05:43 Hgb 12.2 g/dL (13.5-18.0) L 05/11/19 05:43 Hct 38.1 % (42.0-54.0) L 05/11/19 05:43 MCV 73.8 fL (80.0-100.0) L 05/11/19 05:43 MCH 23.6 pg (27.0-34.0) L 05/11/19 05:43 MCHC 31.9 g/dL (33.0-35.0) L 05/11/19 05:43 RDW 15.3 % (11.6-16.5) 05/11/19 05:43 Plt Count 344 X10^3/uL (150.0-450.0) 05/11/19 05:43 Plt Count Comment Adequate (ADEQUATE) 05/11/19 05:43 MPV 6.9 fL (7.4-11.0) L 05/11/19 05:43 Neut % (Auto) 60.5 % (42.0-75.0) 05/11/19 05:43 Lymph % (Auto) 22.1 % (21.0-51.0) 05/11/19 05:43 [place] % (Auto) 13.2 % (0.0-13.0) H 05/11/19 05:43 Eos % (Auto) 3.4 % (0.9-2.9) H 05/11/19 05:43 Baso % (Auto) 0.8 % (0.2-1.0) 05/11/19 05:43 Neut # (Auto) 4.3 x10^3/uL (2.2-4.8) 05/11/19 05:43 Lymph # (Auto) 1.6 X10^3/uL (1.3-2.9) 05/11/19 05:43 [place] # (Auto) 0.9 x10^3/uL (0.3-0.8) H 05/11/19 05:43 Eos # (Auto) 0.2 x10^3/uL (0.0-0.2) 05/11/19 05:43 Baso # (Auto) 0.1 X10^3/uL (0.0-0.1) 05/11/19 05:43 Absolute Nucleated RBC 0.0 /100WBC 05/11/19 05:43 Plt Morphology Comment Normal (NORMAL) 05/11/19 05:43 RBC Morphology Abnormal (NORMAL) 05/11/19 05:43 Hypochromasia Slight A 05/11/19 05:43 D-Dimer 169 ng/mL (0-400) 05/07/19 15:55 Sodium 141 mmol/L (136-145) 05/11/19 05:43 Corrected Sodium TNP 05/11/19 05:43 Potassium 3.9 mmol/L (3.5-5.1) 05/11/19 05:43 Chloride 106 mmol/L (98-107) 05/11/19 05:43 Carbon Dioxide 27.2 mmol/L (21-32) 05/11/19 05:43 BUN 9 mg/dL (7-18) 05/11/19 05:43 Creatinine 0.97 mg/dL (0.70-1.30) 05/11/19 05:43 Est GFR (MDRD) Af Amer > 60 (>60) 05/11/19 05:43 Est GFR (MDRD) Non-Af > 60 (>60) 05/11/19 05:43 Glucose 86 mg/dL (65-99) 05/11/19 05:43 Calcium 8.7 mg/dL (8.5-10.1) 05/11/19 05:43 Corrected Calcium 9.6 mg/dL (8.5-10.1) 05/11/19 05:43 Magnesium 1.8 mg/dL (1.7-2.9) 05/08/19 04:12 Total Bilirubin 0.30 mg/dL (0.2-1.0) 05/11/19 05:43 AST 17 Units/L (15-37) 05/11/19 05:43 ALT 13 Units/L (12-78) 05/11/19 05:43 Alkaline Phosphatase 63 Units/L (46-116) 05/11/19 05:43 Creatine Kinase 289 Units/L (39-308) 05/07/19 15:55 CK-MB (CK-2) 1.4 ng/mL (0-4.0) 05/07/19 15:55 CK/CKMB % Calc 0.5 % (<4) 05/07/19 15:55 Troponin I < 0.02 ng/mL (0-1.5) 05/07/19 15:55 Total Protein 6.2 g/dL (6.4-8.2) L 05/11/19 05:43 Albumin 2.9 g/dL (3.4-5.0) L 05/11/19 05:43 Globulin 3.3 g/dL (2.5-4.5) 05/11/19 05:43 Albumin/Globulin Ratio 0.9 Ratio (1.1-2.1) L 05/11/19 05:43 Specimen Type Clean catch urine 05/07/19 18:03 Urine Color Yellow (YELLOW) 05/07/19 18:03 Urine Appearance Clear (CLEAR) 05/07/19 18:03 Urine pH 6.0 (5.0 - 8.0) 05/07/19 18:03 Ur Specific [place] 1.025 (1.000-1.030) 05/07/19 18:03 Urine Protein 1+ (NEGATIVE) 05/07/19 18:03 Urine Glucose (UA) Negative (NEGATIVE) 05/07/19 18:03 Urine Ketones Negative (NEGATIVE) 05/07/19 18:03 Urine Occult Blood 3+ (NEGATIVE) 05/07/19 18:03 Urine Nitrite Negative (NEGATIVE) 05/07/19 18:03 Urine Bilirubin Negative (NEGATIVE) 05/07/19 18:03 Urine Urobilinogen Normal (NORMAL) 05/07/19 18:03 Ur Leukocyte Esterase Negative (NEGATIVE) 05/07/19 18:03 Urine RBC 5-10 /HPF (NONE SEEN) 05/07/19 18:03 Urine WBC 0-2 /HPF (NONE SEEN) 05/07/19 18:03 Ur Squamous Epith Cells Rare /HPF (NEGATIVE) 05/07/19 18:03 Urine Bacteria Negative /HPF (NEGATIVE) 05/07/19 18:03 Urine Mucus Numerous /HPF (NEGATIVE) 05/07/19 18:03 Ur Culture Indicated? No/not indicated 05/07/19 18:03 Urine Opiates Screen Negative (NEG=<300) 05/07/19 18:03 Urine Methadone Screen Negative (NEG=<300) 05/07/19 18:03 Ur Barbiturates Screen Negative (NEG=<200) 05/07/19 18:03 Ur Phencyclidine Scrn Negative (NEG=<25) 05/07/19 18:03 Ur Amphetamines Screen Negative (NEG=<1000) 05/07/19 18:03 U Benzodiazepines Scrn Negative (NEG=<200) 05/07/19 18:03 Urine Cocaine Screen Positive (NEG=<300) 05/07/19 18:03 U Marijuana (THC) Screen Positive (NEG=<50) A 05/07/19 18:03 - Plan (1) Tension pneumothorax Status: Acute Plan: CHEST TUBE, SUPPLEMENTAL OXYGEN, PAIN CONTROL, CONTINUE TO MONITOR (2) Chest pain, rule out acute myocardial infarction Status: Acute Plan: CONTINUE TO MONITOR
--- NOTE | 2019-05-11 21:57 | RAD ---
AP chest Indication: Follow-up pneumothorax Comparison: 05/11/2019 at 5:20 a.m. Findings: Interval development of a small focus of consolidation within the left lung base consistent with a developing infection or aspiration for which clinical correlation is needed. Severe left apical bullous disease is again noted, no definite residual left-sided pneumothorax post thoracostomy tube removal. No midline shift. Heart size is unchanged. No acute osseous abnormality. Impression: See above. Reported By:
[2019-05-12 05:20] LABS: BASOPHILS # (AUTO) 0.1 X10^3/uL (0.0-0.1); EOSINOPHILS # (AUTO) 0.2 x10^3/uL (0.0-0.2); EOSINOPHILS % (AUTO) 2.7 % (0.9-2.9); HEMATOCRIT 38.7 % (42.0-54.0); HEMOGLOBIN 12.2 g/dL (13.5-18.0); LYMPHOCYTES # (AUTO) 1.7 X10^3/uL (1.3-2.9); LYMPHOCYTES % (AUTO) 20.5 % (21.0-51.0); MEAN CORPUSCULAR HEMOGLOBIN 23.7 pg (27.0-34.0); MEAN CORPUSCULAR HGB CONC 31.6 g/dL (33.0-35.0); MEAN CORPUSCULAR VOLUME 74.9 fL (80.0-100.0); MEAN PLATELET VOLUME 7.7 fL (7.4-11.0); MONOCYTES # (AUTO) 0.9 x10^3/uL (0.3-0.8); MONOCYTES % (AUTO) 10.7 % (0.0-13.0); NEUTROPHILS # (AUTO) 5.5 x10^3/uL (2.2-4.8); NEUTROPHILS % (AUTO) 65.1 % (42.0-75.0); PLATELET COUNT 363 X10^3/uL (150.0-450.0); RED BLOOD COUNT 5.16 X10^6/uL (4.7-6.0); WHITE BLOOD COUNT 8.5 X10^3/uL (3.6-10.0)
[2019-05-12 05:31] LABS: ALANINE AMINOTRANSFERASE 13 Units/L (12-78); ALKALINE PHOSPHATASE 64 Units/L (46-116); ASPARTATE AMINO TRANSFERASE 15 Units/L (15-37); BLOOD UREA NITROGEN 16 mg/dL (7-18); CALCIUM 8.8 mg/dL (8.5-10.1); CARBON DIOXIDE 28.1 mmol/L (21-32); CHLORIDE 106 mmol/L (98-107); COR CA(FOR HYPOALB) 9.6 mg/dL (8.5-10.1); CREATININE 0.99 mg/dL (0.70-1.30); SODIUM 142 mmol/L (136-145); TOTAL PROTEIN 6.4 g/dL (6.4-8.2); eGFR NON BLACK RACES > 60 (>60)
[2019-05-12 05:59] LABS: HYPOCHROMASIA 1+; PLATELET MORPHOLOGY COMMENT NORMAL (NORMAL); TARGET CELLS PRESENT
[2019-05-12 06:24] VITALS: BP 118/68
[2019-05-12] MEDS: LEVAQUIN PREMIX IV 500 MG 500 MG/100 ML BAG IV SCH (08:23)
== END 2019-05-12 12:00 | disposition home or self-care (01) | DRG 201 ==
LOC: ER 15:16 → ICU 19:59
PROVIDERS: ADMIT Internal Medicine; ATTEND Internal Medicine
DX: J93.0 Spontaneous tension pneumothorax; R07.89 Other chest pain; F12.90 Cannabis use, unspecified, uncomplicated; F14.90 Cocaine use, unspecified, uncomplicated; R06.02 Shortness of breath
CPT/HCPCS: 36415; 71010; 71045; 80053; 80307; 81001; 82550; 82553; 83735; 84484; 85025; 85378; 93005; 96365; 96374; 96375; 97161; 97165; 99285; A4217; A4222; S0028; G0434; J1170; J1885; J1956; J2270; J2405; J7030